=== PATIENT | female | born 1965 ===

== ENCOUNTER 2016-10-30 11:40 | Emergency (ER) | payer OTHER ==
[2016-10-30 11:43] VITALS: BMI 24.6
--- NOTE | 2016-10-30 12:06 | ED PDOC ---
Arrival/HPI - General Chief Complaint: GI Problem Time Seen by Provider: 10/30/16 11:41 Historian: Patient - History of Present Illness Narrative History of Present Illness (Text): 10/30/16 12:03 51 year old female presents to the emergency department with lower abdominal pain and multiple episodes of non-bloody diarrhea daily for the past month s/p liposuction in the [place]. Patient claims she has "22 episodes of diarrhea daily, but mostly at night" over the past month. She says symptoms only began after the liposuction. Denies nausea. No other complaints at this time. PMD: Dr. Landeros Time/Duration: < month Symptom Onset: Gradual Symptom Course: Unchanged Modifying Factors (Text): None Associated Symptoms (Text): None Past Medical History - Provider Review Nursing Documentation Reviewed: Yes - Infectious Disease Hx of Infectious Diseases: None - Reproductive Menopause: Yes - Cardiac Hx Cardiac Disorders: No - Pulmonary Hx Respiratory Disorders: No - Neurological Hx Neurological Disorder: No - HEENT Hx HEENT Disorder: No - Renal Hx Renal Disorder: No - Endocrine/Metabolic Hx Endocrine Disorders: No - Hematological/Oncological Hx Blood Disorders: No - Integumentary Hx Dermatological Disorder: No - Musculoskeletal/Rheumatological Hx Musculoskeletal Disorders: No - Gastrointestinal Hx Gastrointestinal Disorders: Yes Hx Gastritis: Yes - Genitourinary/Gynecological Hx Genitourinary Disorders: No - Psychiatric Hx Psychophysiologic Disorder: No Hx Depression: Yes Hx Substance Use: No - Anesthesia Hx Anesthesia Reactions: No Hx Malignant Hyperthermia: No Family/Social History - Physician Review Nursing Documentation Reviewed: Yes Family/Social History: Unknown Family HX Smoking Status: Never Smoked Hx Alcohol Use: No Hx Substance Use: No Allergies/Home Meds Allergies/Adverse Reactions: Allergies shrimp Allergy (Verified 09/16/16 15:12) ANAPHYLAXIS Home Medications: Home Meds Medication Instructions Recorded Confirmed LORazepam [Ativan] 1 mg PO BID PRN 09/16/16 10/30/16 Sertraline [Zoloft] 100 mg PO DAILY 09/16/16 10/30/16 Temazepam [Restoril] 30 mg PO HS PRN 09/16/16 10/30/16 Ranitidine HCl [Heartburn Relief] 150 mg PO BID 10/30/16 10/30/16 Review of Systems - Review of Systems Systems not reviewed;Unavailable: Other (patient speaks Micronesian, although brake specialist also present) Constitutional: absent: Fatigue, Fevers Eyes: absent: Vision Changes ENT: absent: Hearing Changes Respiratory: absent: SOB Cardiovascular: absent: Chest Pain Gastrointestinal: Abdominal Pain, Diarrhea. absent: Nausea Genitourinary Female: absent: Dysuria, Frequency, Hematuria Musculoskeletal: absent: Back Pain Skin: absent: Rash Neurological: absent: Dizziness Endocrine: absent: Diaphoresis Hemo/Lymphatic: absent: Easy Bleeding Psychiatric: absent: Depression Physical Exam - Physical Exam Narrative Physical Exam (Text): Head: Atraumatic. Normocephalic. Eyes: PERRL. EOMI. Conjunctivae are not pale. ENT: Mucous membranes are moist and intact. Oropharynx is clear and symmetric. Neck: Supple. Full ROM. No JVD. No lymphadenopathy. Cardiovascular: Regular rate. Regular rhythm. No murmurs, rubs, or gallops. Distal pulses are 2+ and symmetric. Pulmonary/Chest: No evidence of respiratory distress. Clear to auscultation bilaterally. No wheezing, rales or rhonchi. Abdominal: Soft and non-distended. Mild periumbilical tenderness, no focal rebound or guarding.. No rebound, guarding, or rigidity. No organomegaly. Good bowel sounds. 4 surgical scars, 1 in periumbilical region and 3 in lower abdomen. Stitches in place with some surrounding scarring. No pus or drainage. Back: No CVA tenderness. No midline tenderness. Extremities: No edema. No cyanosis. No clubbing. Full range of motion in all extremities. No calf tenderness. Skin: Skin is warm and dry. No petechiae. No purpura. Neurological: Alert, awake, and oriented to person, place, time, and situation. Normal speech. Motor and sensory intat. Psychiatric: Good eye contact. Normal interaction, affect, and behavior. 10/30/16 17:38 Vital Signs Reviewed: Yes Vital Signs Temp Pulse Resp BP Pulse Ox 10/30/16 13:37 98.2 F 72 18 119/72 100 10/30/16 11:40 98.7 F 111 H 16 136/76 99 Temperature: Afebrile Blood Pressure: Normal Pulse: Tachycardic Respiratory Rate: Normal Appearance: Positive for: Well-Appearing, Non-Toxic, Comfortable Pain Distress: None Mental Status: Positive for: Alert and Oriented X 3 Medical Decision Making ED Course and Treatment: Differential Diagnosis included but are not limited to: Gastritis, gastroenteritis, surgical scar Plan: Will give Pepcid, IV fluids and check basic labs. Prior Visits: Notes and results from previous visits were reviewed. Patient was see in the emergency department on 12/04/15 for epigastric pain and discharged home with Protonix and Zofran. Progress Notes: Patient speaks Micronesian, although brake specialist provided. She states she was recently in [place] and had liposuction performed in the [place]. She states that she has had diarrhea for several weeks with intermittent abdominal "cramping", although her current exam reveals no drainage, MINIMAL pain on initial exam that has resolved after iv fluids and iv pepcid. Labs reviewed. WBC within normal limits, patient afebrile, due to LACK OF PAIN , lack of nausea or vomiting, lack of bloody stools, CT not indicated as she has no pain or fluctuant masses. As it is not possible to communicate with patient's surgeon from [facility], stressed need for close follow-up and I directly discussed case with Dr. Landeros, who states patient is scheduled for outpatient imaging, and states patient was recently placed on Cipro for possible traveler's diarrhea. On reevaluation, patient reports complete resolution of any pain. Patient has not had any further episodes of diarrhea in the emergency department. Liver function tests found to be elevated, similar to recent labs obtained last month , which I have discussed with patient.Patient has no focal right upper quadrant pain but was told to discuss with Dr. Landeros, I have discussed these labs with her and need for follow-up. Instructed patient to follow up with PMD for surgical referral to evaluate sutures as she has insisted that these are not to be taken out. Instructions were translated and patient expresses understanding. Patient stable for discharge. Patient pain free, afebrile, tolerating po, with follow-up arranged. She has been given instructions on indications to return immediately to ER for any new or persistent or worsening of symptoms. No diarrhea or BM in ED. Advised follow-up with pmd for culture or anlaysis of stool if symptoms persistent. - Lab Interpretations Lab Results: 10/30/16 12:20 10/30/16 12:20 Lab Results 10/30/16 12:20: WBC 4.1 L, RBC 4.36, Hgb 13.2, Hct 37.3, MCV 85.6, MCH 30.3, MCHC 35.4, RDW 14.0, Plt Count 279, MPV 9.1, Gran % 49.9 L, Lymph % (Auto) 37.1 H, [place] % (Auto) 7.1 H, Eos % (Auto) 4.9, Baso % (Auto) 1.0, Gran # 2.03, Lymph # 1.5, [place] # 0.3, Eos # 0.2, Baso # 0.04, Sodium 140, Potassium 4.3, Chloride 104, Carbon Dioxide 26, Anion Gap 14, BUN 13, Creatinine 0.8, Est GFR ( Amer) > 60, Est GFR (Non-Af Amer) > 60, Random Glucose 95, Calcium 9.7, Total Bilirubin 0.9, AST 61 H, ALT 94 H, Alkaline Phosphatase 217 H, Total Protein 7.6 , Albumin 4.3, Globulin 3.4, Albumin/Globulin Ratio 1.3, Amylase 75, Lipase 154 , Urine Color Yellow, Urine Appearance Clear, Urine pH 5.5, Ur Specific [place] >= 1.030, Urine Protein Negative, Urine Glucose (UA) Negative, Urine Ketones Negative, Urine Blood Negative, Urine Nitrate Negative, Urine Bilirubin Negative , Urine Urobilinogen 0.2, Ur Leukocyte Esterase Negative, Urine HCG, Qual Negative - Medication Orders Current Medication Orders: Discontinued Medications Famotidine (Pepcid) 20 mg IVP STAT STA Stop: 10/30/16 12:04 Last Admin: 10/30/16 12:25 Dose: 20 MG IVP Administration Document 10/30/16 12:25 CA (Rec: 10/30/16 12:25 CA [id number]) Charges for Administration # of IVP Administrations 1 Sodium Chloride (Sodium Chloride 0.9%) 1,000 mls @ 100 mls/hr IV .Q10H [facility] Last Admin: 10/30/16 12:25 Dose: 100 MLS/HR eMAR Start Stop Document 10/30/16 12:25 CA (Rec: 10/30/16 12:25 CA [id number]) Intravenous Solution Start Date 10/30/16 Start Time 12:25 - Scribe Statement The provider has reviewed the documentation as recorded by the Lili Kim Provider Scribe Attestation: All medical record entries made by the Lili were at my direction and personally dictated by me. I have reviewed the chart and agree that the record accurately reflects my personal performance of the history, physical exam, medical decision making, and the department course for this patient. I have also personally directed, reviewed, and agree with the discharge instructions and disposition. Disposition/Present on Arrival - Present on Arrival Any Indicators Present on Arrival: No History of DVT/PE: No History of Uncontrolled Diabetes: No Urinary Catheter: No History of Decub. Ulcer: No History Surgical Site Infection Following: None - Disposition Have Diagnosis and Disposition been Completed?: Yes Diagnosis: Gastritis Disposition: HOME/ ROUTINE Disposition Time: 13:58 Patient Plan: Discharge Condition: GOOD Discharge Instructions (ExitCare): Gastritis (ED) Additional Instructions: Please follow-up with Dr. Landeros to have your lipsuction scars rechecked as well as need for surgeon referral to evaluate your stitches. Have your "liver enzymes" rechecked and evaluated. For any chest pain, any fever, any shortness of breath, any bloody or dark urine or stool, any persistent or worsening of symptoms, get rechecked. For any fevers or chills, get rechecked. Take your medication as directed. Prescriptions: Esomeprazole Magnesium [Nexium] 20 mg PO DAILY #7 ecc Referrals: Mague Landeros MD [Primary Care Provider] - Follow up with primary
[2016-10-30] MEDS ORDERED: Sodium Chloride 0.9% 1,000 ML IV SCH (12:15)
[2016-10-30 12:28] LABS: ADD MANUAL DIFF? NO
[2016-10-30 12:34] LABS: BASO # 0.04 K/mm3 (0.0-2.0); EOS # 0.2 (0.0-0.7); EOS % 4.9 % (1.5-5.0); GRAN # 2.03 (1.4-6.5); GRAN % 49.9 % (50.0-68.0); HEMATOCRIT 37.3 % (36.0-48.0); LYMPH # 1.5 (1.2-3.4); LYMPH % 37.1 % (22.0-35.0); MEAN CELL VOLUME 85.6 fL (80.0-105.0); MEAN CORPUSCULAR HEMOGLOBIN 30.3 pg (25.0-35.0); MEAN CORPUSCULAR HGB CONC 35.4 g/dl (31.0-37.0); MEAN PLATELET VOLUME 9.1 fl (7.0-11.0); MONO # 0.3 (0.1-0.6); MONO % 7.1 % (1.0-6.0); PH,URINE 5.5 (4.7-8.0); PLATELET COUNT 279 10^3/uL (120.0-450.0); URINE BILIRUBIN NEGATIVE (NEGATIVE); URINE BLOOD NEGATIVE (NEGATIVE); URINE GLUCOSE (UA) NEGATIVE (NEGATIVE); URINE KETONE NEGATIVE (NEGATIVE); URINE LEUKOCYTE ESTERASE NEGATIVE Leu/uL (NEGATIVE); URINE PROTEIN NEGATIVE mg/dL (<30 mg/dL); URINE UROBILINOGEN 0.2 E.U./dL (<1 E.U./dL); WHITE BLOOD COUNT 4.1 10^3/ul (4.5-11.0)
[2016-10-30 12:40] LABS: URINE APPEARANCE CLEAR (CLEAR); URINE COLOR YELLOW (YELLOW)
[2016-10-30 12:47] LABS: ALB/GLOB RATIO 1.3 (1.1-1.8); ALKALINE PHOSPHATASE 217 U/L (38-133); ALT/SGPT 94 U/L (7-56); AMYLASE 75 U/L (35-125); AST/SGOT 61 U/L (15-39); BILIRUBIN,TOTAL 0.9 mg/dL (0.2-1.3); BLOOD UREA NITROGEN 13 mg/dL (7-21); CALCIUM 9.7 mg/dL (8.4-10.5); CARBON DIOXIDE 26 mmol/L (21-33); CHLORIDE 104 mmol/L (95-110); GFR AFRICAN-AMERICAN > 60; GLUCOSE,RANDOM 95 mg/dL (70-110); LIPASE 154 U/L (23-300); POTASSIUM 4.3 mmol/L (3.6-5.0); SODIUM 140 mmol/L (132-148); TOTAL PROTEIN 7.6 g/dL (5.8-8.3)
[2016-10-30 13:38] VITALS: BP 119/72; PULSE 72; RESP 18; TEMP 98.2; O2SAT 100
== END 2016-10-30 14:05 | disposition home or self-care (01) ==
LOC: ED 11:40
DX: K29.70 Gastritis, unspecified, without bleeding (principal)
CPT/HCPCS: 80053; 81003; 82150; 83690; 84703; 85025; 96374; 99284; J7040

== ENCOUNTER 2017-04-19 13:35 | Inpatient (IN) | payer OTHER ==
[2017-04-19 13:35] VITALS: BMI 24.6
[2017-04-19] MEDS ORDERED: Sodium Chloride 0.9% 1,000 ML IV STA (14:04)
--- NOTE | 2017-04-19 14:24 | ED PDOC ---
Arrival/HPI - General Chief Complaint: Abdominal Pain Time Seen by Provider: 04/19/17 13:56 Historian: Patient - History of Present Illness Narrative History of Present Illness (Text): 04/19/17 Rima Alves is a 51 year old female, who presents to the emergency department sent in for evaluation by Dr. Landeros for epigastric pain since four days ago. Patient reports she has been nauseous for the past 3 days and has had three episodes of vomiting yesterday. Patient also notes having loose-watery stool for 2 days. Patient denies fever, dysuria, hematuria, recent travel, or sick contact. No other complaints were made. PMD: Dr. Landeros Time/Duration: < week (4 days) Symptom Onset: Sudden Symptom Course: Unchanged Associated Symptoms (Text): nausea, vomiting, diarrhea Past Medical History - Provider Review Nursing Documentation Reviewed: Yes - Infectious Disease Hx of Infectious Diseases: None - Cardiac Hx Cardiac Disorders: No - Pulmonary Hx Respiratory Disorders: No - Neurological Hx Neurological Disorder: No - HEENT Hx HEENT Disorder: No - Renal Hx Renal Disorder: No - Endocrine/Metabolic Hx Endocrine Disorders: No - Hematological/Oncological Hx Blood Disorders: No - Integumentary Hx Dermatological Disorder: No - Musculoskeletal/Rheumatological Hx Musculoskeletal Disorders: No - Gastrointestinal Hx Gastrointestinal Disorders: Yes Hx Gastritis: Yes - Genitourinary/Gynecological Hx Genitourinary Disorders: No - Psychiatric Hx Psychophysiologic Disorder: No Hx Anxiety: Yes Hx Depression: Yes Hx Substance Use: No - Surgical History Other/Comment: Tummy Tuck - Anesthesia Hx Anesthesia Reactions: No Hx Malignant Hyperthermia: No Family/Social History - Physician Review Nursing Documentation Reviewed: Yes Family/Social History: Unknown Family HX Smoking Status: Never Smoked Hx Alcohol Use: No Hx Substance Use: No Allergies/Home Meds Allergies/Adverse Reactions: Allergies No Known Allergies Allergy (Verified 04/19/17 13:47) Home Medications: Home Meds Medication Instructions Recorded Confirmed LORazepam [Ativan] 2 mg PO BID PRN 09/16/16 04/19/17 Sertraline [Zoloft] 50 mg PO DAILY 09/16/16 04/19/17 Temazepam [Restoril] 30 mg PO HS PRN 09/16/16 04/19/17 Review of Systems - Review of Systems Constitutional: absent: Fevers Respiratory: absent: SOB Gastrointestinal: Abdominal Pain, Diarrhea, Nausea, Vomiting Genitourinary Female: absent: Dysuria, Hematuria Neurological: absent: Headache Physical Exam Vital Signs Reviewed: Yes Vital Signs Temp Pulse Resp BP Pulse Ox 04/19/17 17:59 61 16 130/74 100 04/19/17 16:02 66 12 118/62 100 04/19/17 13:57 74 12 148/81 100 04/19/17 13:42 98.6 F 85 16 127/75 98 Temperature: Afebrile Blood Pressure: Normal Pulse: Regular Respiratory Rate: Normal Appearance: Positive for: Well-Appearing, Non-Toxic, Comfortable Pain Distress: None Mental Status: Positive for: Alert and Oriented X 3 - Systems Exam Head: Present: Atraumatic, Normocephalic Pupils: Present: PERRL Extroacular Muscles: Present: EOMI Conjunctiva: Present: Normal Mouth: Present: Moist Mucous Membranes Neck: Present: Normal Range of Motion Respiratory/Chest: Present: Clear to Auscultation, Good Air Exchange. No: Respiratory Distress, Accessory Muscle Use Cardiovascular: Present: Regular Rate and Rhythm, Normal S1, S2. No: Murmurs Abdomen: Present: Tenderness (upper quadrant tenderness), Normal Bowel Sounds. No: Distention, Peritoneal Signs, Guarding Upper Extremity: Present: Normal Inspection. No: Cyanosis, Edema Lower Extremity: Present: Normal Inspection. No: Edema Neurological: Present: GCS=15, CN II-XII Intact, Speech Normal Skin: Present: Warm, Dry, Normal Color. No: Rashes Psychiatric: Present: Alert, Oriented x 3, Normal Insight, Normal Concentration Medical Decision Making ED Course and Treatment: 04/19/17 Impression: 51 year old female with upper quadrant tenderness complaining of abdominal pain , nausea, vomiting, and diarrhea. Plan: -- Ultrasound -- Labs -- Urinalysis -- Pepcid, Zofran, and Sodium Chloride -- Reassess and disposition Progress Notes: 04/19/17 16:54 Case discussed with surgical garment assembly supervisor. - Lab Interpretations Lab Results: 04/19/17 14:20 04/19/17 14:20 Lab Results 04/19/17 14:20: Sodium 146, Potassium 4.0, Chloride 105, Carbon Dioxide 33, Anion Gap 12, BUN 13, Creatinine 0.8, Est GFR ( Amer) > 60, Est GFR (Non- Af Amer) > 60, Random Glucose 96, Calcium 9.1, Total Bilirubin 0.6, AST 64 H, ALT 105 H, Alkaline Phosphatase 157 H, Total Protein 6.9, Albumin 4.1, Globulin 2.8, Albumin/Globulin Ratio 1.5, Lipase 161 04/19/17 14:20: Urine Color Yellow, Urine Appearance Sl cloudy, Urine pH 6.0, Ur Specific [place] >= 1.030, Urine Protein Trace H, Urine Glucose (UA) Negative , Urine Ketones Trace H, Urine Blood Small H, Urine Nitrate Negative, Urine Bilirubin Negative, Urine Urobilinogen 1.0 H, Ur Leukocyte Esterase Trace H, Urine RBC 2 - 5, Urine WBC 0 - 2, Ur Epithelial Cells 6 - 8, Urine Bacteria Trace 04/19/17 14:20: WBC 4.3 L, RBC 4.55, Hgb 13.1, Hct 37.8, MCV 83.1, MCH 28.8, MCHC 34.7, RDW 12.8, Plt Count 152, MPV 9.5, Gran % 61.2, Lymph % (Auto) 28.4, [place] % (Auto) 7.9 H, Eos % (Auto) 2.3, Baso % (Auto) 0.2, Gran # 2.65, Lymph # 1.2, [place] # 0.3, Eos # 0.1, Baso # 0.01 I have reviewed the lab results: Yes - RAD Interpretation Radiology Orders: 04/19/17 14:04 ABDOMEN COMPLETE [US] Stat 04/19/17 17:58 Biliary scan (HIDA) w/ CCK [NM] Routine - Medication Orders Current Medication Orders: Sodium Chloride (Sodium Chloride 0.9%) 1,000 mls @ 100 mls/hr IV .Q10H SIL Last Admin: 04/19/17 18:10 Dose: 100 mls/hr Piperacillin Sod/Tazobactam Sod (Zosyn 3.375 In Ns 100ml) 100 mls @ 200 mls/hr IVPB STAT STA PRN Reason: Protocol Stop: 04/19/17 19:14 Morphine Sulfate (Morphine) 4 mg IVP Q4 PRN PRN Reason: Pain, moderate (4-7) Ondansetron HCl (Zofran Inj) 4 mg IVP Q4H PRN PRN Reason: Nausea/Vomiting Discontinued Medications Famotidine (Pepcid) 20 mg IVP STAT STA Stop: 04/19/17 14:05 Last Admin: 04/19/17 14:26 Dose: 20 mg Sodium Chloride (Sodium Chloride 0.9%) 1,000 mls @ 1,000 mls/hr IV .Q1H STA Stop: 04/19/17 15:03 Last Admin: 04/19/17 14:25 Dose: 1,000 mls/hr Ondansetron HCl (Zofran Inj) 4 mg IVP STAT STA Stop: 04/19/17 14:05 Last Admin: 04/19/17 14:26 Dose: 4 mg - Scribe Statement The provider has reviewed the documentation as recorded by the Lili Pena Provider [place] Attestation: All medical record entries made by the Kennethibe were at my direction and personally dictated by me. I have reviewed the chart and agree that the record accurately reflects my personal performance of the history, physical exam, medical decision making, and the department course for this patient. I have also personally directed, reviewed, and agree with the discharge instructions and disposition. Disposition/Present on Arrival - Present on Arrival Any Indicators Present on Arrival: No History of DVT/PE: No History of Uncontrolled Diabetes: No Urinary Catheter: No History of Decub. Ulcer: No History Surgical Site Infection Following: None - Disposition Have Diagnosis and Disposition been Completed?: Yes Diagnosis: Cholecystitis Disposition: HOSPITALIZED Disposition Time: 18:00 Condition: STABLE Referrals: PCP,NO [Primary Care Provider] - Follow up with primary Forms: Fineline (Malian)
[2017-04-19 14:35] LABS: BASO # 0.01 K/mm3 (0.0-2.0); BASO % 0.2 % (0.0-3.0); EOS # 0.1 (0.0-0.7); EOS % 2.3 % (1.5-5.0); GRAN # 2.65 (1.4-6.5); GRAN % 61.2 % (50.0-68.0); HEMATOCRIT 37.8 % (36.0-48.0); LYMPH # 1.2 (1.2-3.4); LYMPH % 28.4 % (22.0-35.0); MEAN CELL VOLUME 83.1 fl (80.0-105.0); MEAN CORPUSCULAR HEMOGLOBIN 28.8 pg (25.0-35.0); MEAN CORPUSCULAR HGB CONC 34.7 g/dl (31.0-37.0); MEAN PLATELET VOLUME 9.5 fl (7.0-11.0); MONO # 0.3 (0.1-0.6); MONO % 7.9 % (1.0-6.0); RED CELL DISTRIBUTION WIDTH 12.8 % (11.5-14.5); URINE BILIRUBIN NEGATIVE (NEGATIVE); URINE BLOOD SMALL (NEGATIVE); URINE GLUCOSE (UA) NEGATIVE (NEGATIVE); URINE KETONE TRACE mg/dL (NEGATIVE); URINE LEUKOCYTE ESTERASE TRACE Leu/uL (NEGATIVE); URINE PROTEIN TRACE mg/dL (<30 mg/dL); WHITE BLOOD COUNT 4.3 10^3/ul (4.5-11.0)
[2017-04-19 14:37] LABS: URINE APPEARANCE SL CLOUDY (CLEAR); URINE COLOR YELLOW (YELLOW)
[2017-04-19 14:38] LABS: URINE BACTERIA TRACE (NEG); URINE WBC 0 - 2 /hpf (0-6)
[2017-04-19 14:44] LABS: ALB/GLOB RATIO 1.5 (1.1-1.8); ALKALINE PHOSPHATASE 157 U/L (38-126); ALT/SGPT 105 U/L (7-56); AST/SGOT 64 U/L (14-36); BILIRUBIN,TOTAL 0.6 mg/dL (0.2-1.3); BLOOD UREA NITROGEN 13 mg/dL (7-21); CALCIUM 9.1 mg/dL (8.4-10.5); CARBON DIOXIDE 33 mmol/L (21-33); CHLORIDE 105 mmol/L (98-107); GFR AFRICAN-AMERICAN > 60; GLUCOSE,RANDOM 96 mg/dL (70-110); LIPASE 161 U/L (23-300); SODIUM 146 mmol/L (132-148); TOTAL PROTEIN 6.9 g/dL (5.8-8.3)
--- NOTE | 2017-04-19 15:52 | US ---
HISTORY: epigastric and RUQ tenderness COMPARISON: None. TECHNIQUE: Grayscale imaging was performed. FINDINGS: LIVER: Measures 16.4 cm. There is diffuse increased echogenicity of the liver parenchyma. No mass. No intrahepatic bile duct dilatation. GALLBLADDER: There are multiple gallstones and sludge in the gallbladder. No wall thickening, pericholecystic fluid or positive sonographic Lubin's sign. COMMON BILE DUCT: Measures 4.0 mm. No stones. No dilatation. PANCREAS: Unremarkable as visualized. No mass. No ductal dilatation. RIGHT KIDNEY: Measures 10.2cm. Normal echogenicity. No calculus, mass, or hydronephrosis. LEFT KIDNEY: Measures 10.1cm. Normal echogenicity. No calculus, mass, or hydronephrosis. SPLEEN: Normal in size and contour. No mass. AORTA: No aneurysmal dilatation. IVC: Unremarkable. OTHER FINDINGS: None. IMPRESSION: 1. Diffuse increased echogenicity in the liver may reflect hepatic steatosis however parenchymal infectious/ inflammatory etiologies cannot be entirely excluded. Clinical and laboratory correlation is advised. 2. Cholelithiasis and gallbladder sludge.
--- NOTE | 2017-04-19 17:49 | CP.PCM.CON ---
History of Present Illness - History of Present Illness History of Present Illness: SURGERY CONSULT FOR DR. PETERS 51F presents with epigastric pain that began 4 days ago. Patient states she has had this type of pain before multiple times but was sent home from ER for follow up. Patient states the pain is associated with nausea, vomiting, subjective fevers/chills. Pain does not radiated anywhere PMH: denies PSH: abdominoplasty Social: denies alcohol, tobacco, illicit drugs Allergies: NKDA Past Patient History - Infectious Disease Hx of Infectious Diseases: None - Past Social History Smoking Status: Never Smoked - CARDIAC Hx Cardiac Disorders: No - PULMONARY Hx Respiratory Disorders: No - NEUROLOGICAL Hx Neurological Disorder: No - HEENT Hx HEENT Problems: No - RENAL Hx Chronic Kidney Disease: No - ENDOCRINE/METABOLIC Hx Endocrine Disorders: No - HEMATOLOGICAL/ONCOLOGICAL Hx Blood Disorders: No - INTEGUMENTARY Hx Dermatological Problems: No - MUSCULOSKELETAL/RHEUMATOLOGICAL Hx Musculoskeletal Disorders: No - GASTROINTESTINAL Hx Gastrointestinal Disorders: Yes Hx Gastritis: Yes - GENITOURINARY/GYNECOLOGICAL Hx Genitourinary Disorders: No - PSYCHIATRIC Hx Psychophysiologic Disorder: No Hx Anxiety: Yes Hx Depression: Yes Hx Substance Use: No - SURGICAL HISTORY Other/Comment: Tummy Tuck - ANESTHESIA Hx Anesthesia Reactions: No Hx Malignant Hyperthermia: No Meds Allergies/Adverse Reactions: Allergies Allergy/AdvReac Type Severity Reaction Status Date / Time No Known Allergies Allergy Verified 04/19/17 13:47 Physical Exam - Constitutional Appears: Non-toxic, No Acute Distress - Head Exam Head Exam: ATRAUMATIC - Eye Exam Eye Exam: EOMI, PERRL - ENT Exam ENT Exam: Mucous Membranes Moist - Respiratory Exam Respiratory Exam: Clear to Auscultation Bilateral, NORMAL BREATHING PATTERN - Cardiovascular Exam Cardiovascular Exam: REGULAR RHYTHM, +S1, +S2 - GI/Abdominal Exam GI & Abdominal Exam: Soft, Tenderness. absent: Distended, Firm, Guarding, Rebound, Rigid Additional comments: positive murphys sign, abdominoplasty scar noted - Extremities Exam Extremities exam: Negative for: pedal edema, tenderness - Neurological Exam Neurological exam: Alert, Oriented x3 - Psychiatric Exam Psychiatric exam: Normal Affect, Normal Mood - Skin Skin Exam: Dry, Intact, Normal Color, Warm Results - Vital Signs Recent Vital Signs: Last Vital Signs Temp 98.6 F 04/19/17 13:42 Pulse 66 04/19/17 16:02 Resp 12 04/19/17 16:02 BP 118/62 04/19/17 16:02 Pulse Ox 100 04/19/17 16:02 - Labs Result Diagrams: 04/19/17 14:20 04/19/17 14:20 Labs: Laboratory Results - last 24 hr 04/19/17 04/19/17 04/19/17 14:20 14:20 14:20 WBC 4.3 L RBC 4.55 Hgb 13.1 Hct 37.8 MCV 83.1 MCH 28.8 MCHC 34.7 RDW 12.8 Plt Count 152 MPV 9.5 Gran % 61.2 Lymph % (Auto) 28.4 [place] % (Auto) 7.9 H Eos % (Auto) 2.3 Baso % (Auto) 0.2 Gran # 2.65 Lymph # 1.2 [place] # 0.3 Eos # 0.1 Baso # 0.01 Sodium 146 Potassium 4.0 Chloride 105 Carbon Dioxide 33 Anion Gap 12 BUN 13 Creatinine 0.8 Est GFR ( Amer) > 60 Est GFR (Non-Af Amer) > 60 Random Glucose 96 Calcium 9.1 Total Bilirubin 0.6 AST 64 H ALT 105 H Alkaline Phosphatase 157 H Total Protein 6.9 Albumin 4.1 Globulin 2.8 Albumin/Globulin Ratio 1.5 Lipase 161 Urine Color Yellow Urine Appearance Sl cloudy Urine pH 6.0 Ur Specific [place] >= 1.030 Urine Protein Trace H Urine Glucose (UA) Negative Urine Ketones Trace H Urine Blood Small H Urine Nitrate Negative Urine Bilirubin Negative Urine Urobilinogen 1.0 H Ur Leukocyte Esterase Trace H Urine RBC 2 - 5 Urine WBC 0 - 2 Ur Epithelial Cells 6 - 8 Urine Bacteria Trace Assessment & Plan - Assessment and Plan (Free Text) Assessment: 51F with cholelithiasis US: Sludge/cholelithiasis, no wall thickening, no pericholecystic fluid, positive sonographic ackerman's Plan: - NPO, IVF - Pain control, anti-emetic - serial abdominal exams - HIDA Further recs discuss with Dr. Hayden Barba, PGY2
[2017-04-19] MEDS ORDERED: Morphine 4 mg/ml ISec IVP PRN (17:58)
[2017-04-19] MEDS: Sodium Chloride 0.9% 1,000 ML IV SCH (18:10)
[2017-04-19] MEDS ORDERED: Piperacillin/Tazobact 3.375 gm 100 ML IVPB STA (18:45)
--- NOTE | 2017-04-19 20:20 | ED PDOC ---
Physical Exam Vital Signs Temp Pulse Resp BP Pulse Ox 04/19/17 18:56 98.3 F 66 16 104/66 100 04/19/17 17:59 61 16 130/74 100 04/19/17 16:02 66 12 118/62 100 04/19/17 13:57 74 12 148/81 100 04/19/17 13:42 98.6 F 85 16 127/75 98 Medical Decision Making ED Course and Treatment: 04/19/17 20:18 dr delacruz on blue list will admit to medical service dr lees notified, my only involvement in this case was changing admitting dr 04/19/17 20:20 - Lab Interpretations Lab Results: 04/19/17 14:20 04/19/17 14:20 Lab Results 04/19/17 14:20: Sodium 146, Potassium 4.0, Chloride 105, Carbon Dioxide 33, Anion Gap 12, BUN 13, Creatinine 0.8, Est GFR ( Amer) > 60, Est GFR (Non- Af Amer) > 60, Random Glucose 96, Calcium 9.1, Total Bilirubin 0.6, AST 64 H, ALT 105 H, Alkaline Phosphatase 157 H, Total Protein 6.9, Albumin 4.1, Globulin 2.8, Albumin/Globulin Ratio 1.5, Lipase 161 04/19/17 14:20: Urine Color Yellow, Urine Appearance Sl cloudy, Urine pH 6.0, Ur Specific [place] >= 1.030, Urine Protein Trace H, Urine Glucose (UA) Negative , Urine Ketones Trace H, Urine Blood Small H, Urine Nitrate Negative, Urine Bilirubin Negative, Urine Urobilinogen 1.0 H, Ur Leukocyte Esterase Trace H, Urine RBC 2 - 5, Urine WBC 0 - 2, Ur Epithelial Cells 6 - 8, Urine Bacteria Trace 04/19/17 14:20: WBC 4.3 L, RBC 4.55, Hgb 13.1, Hct 37.8, MCV 83.1, MCH 28.8, MCHC 34.7, RDW 12.8, Plt Count 152, MPV 9.5, Gran % 61.2, Lymph % (Auto) 28.4, [place] % (Auto) 7.9 H, Eos % (Auto) 2.3, Baso % (Auto) 0.2, Gran # 2.65, Lymph # 1.2, Bath # 0.3, Eos # 0.1, Baso # 0.01 - RAD Interpretation Radiology Orders: 04/19/17 14:04 ABDOMEN COMPLETE [US] Stat 04/19/17 17:58 Biliary scan (HIDA) w/ CCK [NM] Routine - Medication Orders Current Medication Orders: Sodium Chloride (Sodium Chloride 0.9%) 1,000 mls @ 100 mls/hr IV .Q10H [facility] Last Admin: 04/19/17 18:10 Dose: 100 mls/hr Morphine Sulfate (Morphine) 4 mg IVP Q4 PRN PRN Reason: Pain, moderate (4-7) Ondansetron HCl (Zofran Inj) 4 mg IVP Q4H PRN PRN Reason: Nausea/Vomiting Discontinued Medications Famotidine (Pepcid) 20 mg IVP STAT STA Stop: 04/19/17 14:05 Last Admin: 04/19/17 14:26 Dose: 20 mg Sodium Chloride (Sodium Chloride 0.9%) 1,000 mls @ 1,000 mls/hr IV .Q1H ST[facility] Stop: 04/19/17 15:03 Last Admin: 04/19/17 14:25 Dose: 1,000 mls/hr Piperacillin Sod/Tazobactam Sod (Zosyn 3.375 In Ns 100ml) 100 mls @ 200 mls/hr IVPB STAT STA PRN Reason: Protocol Stop: 04/19/17 19:14 Last Admin: 04/19/17 19:05 Dose: 200 mls/hr Ondansetron HCl (Zofran Inj) 4 mg IVP STAT STA Stop: 04/19/17 14:05 Last Admin: 04/19/17 14:26 Dose: 4 mg Disposition/Present on Arrival - Present on Arrival Any Indicators Present on Arrival: No History of DVT/PE: No History of Uncontrolled Diabetes: No Urinary Catheter: No History of Decub. Ulcer: No History Surgical Site Infection Following: None - Disposition Have Diagnosis and Disposition been Completed?: Yes Diagnosis: Cholecystitis Disposition: HOSPITALIZED Disposition Time: 20:19 Patient Problems: Current Active Problems Problem Status Onset Cholecystitis Acute Condition: STABLE Referrals: PCP,NO [Primary Care Provider] - Follow up with primary Forms: [id number] ([place])
--- NOTE | 2017-04-19 21:24 | CP.PCM.HP ---
<VillanuevaSeanAndriy - Last Filed: 04/20/17 20:09> History of Present Illness - History of Present Illness History of Present Illness: 51 yo female with no significant past medical history presents with epigastric pain for the past 4 days. She describes the pain as constant and sharp and states it is 10/10 intensity. She denies any radiation. She states she has been nauseas and has had three episodes of vomiting yesterday. The vomit had food particles and and denied any blood. She also states she has had diarrhea for the past 2 days which has been several times a day and watery in quality. In addition, she states she has had some slight chills but no fever. She denies any SOB, CP, hematuria, joint or muscle pain, sick contacts or recent travel. PMH: None significant PSH: abdominoplasty Allergies: NKDA Medications: Tomazepam, sertraline, Lorazepam Family Hx: none significant Social: denies alcohol, tobacco, or illicit drug use PMD: Dr. Landeros Present on Admission - Present on Admission Any Indicators Present on Admission: No Review of Systems - Constitutional Constitutional: Chills Past Patient History - Infectious Disease Hx of Infectious Diseases: None - Past Social History Smoking Status: Never Smoked - CARDIAC Hx Cardiac Disorders: No - PULMONARY Hx Respiratory Disorders: No - NEUROLOGICAL Hx Neurological Disorder: No - HEENT Hx HEENT Problems: No - RENAL Hx Chronic Kidney Disease: No - ENDOCRINE/METABOLIC Hx Endocrine Disorders: No - HEMATOLOGICAL/ONCOLOGICAL Hx Blood Disorders: No - INTEGUMENTARY Hx Dermatological Problems: No - MUSCULOSKELETAL/RHEUMATOLOGICAL Hx Musculoskeletal Disorders: No - GASTROINTESTINAL Hx Gastrointestinal Disorders: Yes Hx Gastritis: Yes - GENITOURINARY/GYNECOLOGICAL Hx Genitourinary Disorders: No - PSYCHIATRIC Hx Psychophysiologic Disorder: No Hx Anxiety: Yes Hx Depression: Yes Hx Substance Use: No - SURGICAL HISTORY Other/Comment: Tummy Tuck - ANESTHESIA Hx Anesthesia Reactions: No Hx Malignant Hyperthermia: No Meds Allergies/Adverse Reactions: Allergies Allergy/AdvReac Type Severity Reaction Status Date / Time No Known Allergies Allergy Verified 04/19/17 13:47 Physical Exam - Constitutional Appears: No Acute Distress - Head Exam Head Exam: ATRAUMATIC, NORMAL INSPECTION, NORMOCEPHALIC - Eye Exam Eye Exam: EOMI, PERRL Pupil Exam: NORMAL ACCOMODATION, PERRL - Respiratory Exam Respiratory Exam: Clear to Auscultation Bilateral, NORMAL BREATHING PATTERN - Cardiovascular Exam Cardiovascular Exam: REGULAR RHYTHM, +S1, +S2. absent: +S4, Systolic Murmur - GI/Abdominal Exam GI & Abdominal Exam: Normal Bowel Sounds, Tenderness Additional comments: tenderness in right and left upper quadrants , positive muprhys sign - Neurological Exam Neurological exam: Alert, CN II-XII Intact, Oriented x3 Results - Vital Signs Recent Vital Signs: Last Vital Signs Temp 98.3 F 04/19/17 18:56 Pulse 66 04/19/17 18:56 Resp 16 04/19/17 18:56 BP 104/66 04/19/17 18:56 Pulse Ox 100 04/19/17 18:56 - Labs Result Diagrams: 04/19/17 14:20 04/19/17 14:20 Assessment & Plan - Assessment and Plan (Free Text) Assessment: 51 yo female presents with epigastric pain for the past 4 days. She describes the pain as constant and sharp and states it is 10/10 intensity. She denies any radiation. She is being worked up for abdominal pain likely due to cholelithiasis and ruling out pancreatitis. Plan: 1. Abdominal pain likely due to cholelithiasis doubt pancreatitis - Abdominal ultrasound done and showing sludge/cholelithiasis, no wall thickening, no pericholecystic fluid, positive sonographic ackerman's - CBC and CMP ordered , electrolytes within normal limits, AST=64, SWY=453 , lipase 161, amylase 54repeat continue to monitor - Patient temp 99.1 will monitor, no leukocytosis (WBC=4.3), repeat and monitor - Vitals stable continue to monitor - patient NPO - started on Morphine for pain control - Fluids started - Zofran for nausea - Surgery consulted - GI consulted to rule out possible pancreatitis - HIDA scan ordered by Surgery 2. Depression -hold current medication -possible psychiatry consultation 3. Prophylaxis -Protonix started -Herparin started <Edd Ding - Last Filed: 04/21/17 04:18> Results - Vital Signs Recent Vital Signs: Last Vital Signs Temp 98.1 F 04/21/17 00:00 Pulse 76 04/21/17 00:00 Resp 20 04/21/17 00:00 BP 132/68 04/21/17 00:00 Pulse Ox 98 04/21/17 00:00 - Labs Result Diagrams: 04/20/17 05:30 04/20/17 05:30 Labs: Laboratory Results - last 24 hr 04/20/17 04/20/17 04/20/17 05:30 05:30 05:30 WBC 3.2 L D RBC 4.21 Hgb 11.9 L Hct 35.2 L MCV 83.6 MCH 28.3 MCHC 33.8 RDW 13.0 Plt Count 137 MPV 9.6 PT 10.7 INR 0.99 APTT 33.1 H Sodium 143 Potassium 4.1 Chloride 107 Carbon Dioxide 30 Anion Gap 10 BUN 10 Creatinine 0.7 Est GFR ( Amer) > 60 Est GFR (Non-Af Amer) > 60 Random Glucose 88 Calcium 8.6 Iron TIBC % Saturation Ferritin Total Bilirubin 0.8 AST 55 H ALT 96 H Alkaline Phosphatase 167 H Total Protein 6.2 Albumin 3.3 Globulin 2.9 Albumin/Globulin Ratio 1.1 IgG IgA IgM Hepatitis A IgM Ab Hep Bs Antigen Hep B Core IgM Ab Hepatitis C Antibody 04/20/17 04/20/17 04/20/17 05:45 07:30 07:30 WBC RBC Hgb Hct MCV MCH MCHC RDW Plt Count MPV PT INR APTT Sodium Potassium Chloride Carbon Dioxide Anion Gap BUN Creatinine Est GFR ( Amer) Est GFR (Non-Af Amer) Random Glucose Calcium Iron 82 TIBC 256 L % Saturation 32 Ferritin 180.0 Total Bilirubin AST ALT Alkaline Phosphatase Total Protein Albumin Globulin Albumin/Globulin Ratio IgG 860.0 IgA 181.9 IgM 195.9 Hepatitis A IgM Ab Hep Bs Antigen Hep B Core IgM Ab Hepatitis C Antibody 04/20/17 07:45 WBC RBC Hgb Hct MCV MCH MCHC RDW Plt Count MPV PT INR APTT Sodium Potassium Chloride Carbon Dioxide Anion Gap BUN Creatinine Est GFR ( Amer) Est GFR (Non-Af Amer) Random Glucose Calcium Iron TIBC % Saturation Ferritin Total Bilirubin AST ALT Alkaline Phosphatase Total Protein Albumin Globulin Albumin/Globulin Ratio IgG IgA IgM Hepatitis A IgM Ab Negative Hep Bs Antigen Negative Hep B Core IgM Ab Negative Hepatitis C Antibody Negative Attending/Attestation - Attestation I have personally seen and examined this patient.: Yes I have fully participated in the care of the patient.: Yes I have reviewed all pertinent clinical information: Yes Notes (Text): 04/21/17 04:18 Agree with history, physical examination, assessment and plan.
[2017-04-20 06:12] LABS: HEMATOCRIT 35.2 % (36.0-48.0); MEAN CELL VOLUME 83.6 fl (80.0-105.0); MEAN CORPUSCULAR HEMOGLOBIN 28.3 pg (25.0-35.0); MEAN CORPUSCULAR HGB CONC 33.8 g/dl (31.0-37.0); MEAN PLATELET VOLUME 9.6 fl (7.0-11.0); WHITE BLOOD COUNT 3.2 10^3/ul (4.5-11.0)
[2017-04-20 06:16] LABS: INR 0.99 (0.93-1.08); PARTIAL THROMBOPLASTIN TIME 33.1 Seconds (23.7-30.8)
[2017-04-20] MEDS: Sodium Chloride 0.9% 1,000 ML IV SCH ×2 (06:45→16:46)
[2017-04-20 07:29] LABS: ALB/GLOB RATIO 1.1 (1.1-1.8); ALKALINE PHOSPHATASE 167 U/L (38-126); ALT/SGPT 96 U/L (7-56); AST/SGOT 55 U/L (14-36); BILIRUBIN,TOTAL 0.8 mg/dL (0.2-1.3); BLOOD UREA NITROGEN 10 mg/dL (7-21); CALCIUM 8.6 mg/dL (8.4-10.5); CARBON DIOXIDE 30 mmol/L (21-33); CHLORIDE 107 mmol/L (95-110); GFR AFRICAN-AMERICAN > 60; GLUCOSE,RANDOM 88 mg/dL (70-110); POTASSIUM 4.1 mmol/L (3.6-5.0); SODIUM 143 mmol/L (132-148); TOTAL PROTEIN 6.2 g/dL (5.8-8.3)
[2017-04-20 07:45] LABS: IRON 82 ug/dL (45-180)
--- NOTE | 2017-04-20 08:00 | CP.PCM.PN ---
Subjective - Date & Time of Evaluation Date of Evaluation: 04/20/17 Time of Evaluation: 07:56 - Subjective Subjective: General Surgery Progress Note PT S&E at bedside. NAEON. Patient states she's experiencing some pain, but is tolerable. No nausea or vomiting overnight. No fever, chills. Objective - Vital Signs/Intake and Output Vital Signs (last 24 hours): Temp Pulse Resp BP Pulse Ox 98.2 F 72 20 129/74 100 04/20/17 07:41 04/20/17 07:41 04/20/17 07:41 04/20/17 07:41 04/20/17 07:41 Intake and Output: 04/20/17 04/20/17 06:59 18:59 Intake Total 240 Output Total 1 Balance 239 - Medications Medications: Current Medications Heparin Sodium (Porcine) (Heparin) 5,000 units IV Q12 [facility] Last Admin: 04/20/17 00:15 Dose: 5,000 units Sodium Chloride (Sodium Chloride 0.9%) 1,000 mls @ 100 mls/hr IV .Q10H [facility] Last Admin: 04/20/17 06:45 Dose: 100 mls/hr Morphine Sulfate (Morphine) 4 mg IVP Q4 PRN PRN Reason: Pain, moderate (4-7) Ondansetron HCl (Zofran Inj) 4 mg IVP Q4H PRN PRN Reason: Nausea/Vomiting Pantoprazole Sodium (Protonix Inj) 40 mg IVP DAILY [facility] - Labs Labs: 04/20/17 05:30 04/20/17 05:30 PT 10.7 Seconds (9.9-11.8) 04/20/17 05:30 INR 0.99 (0.93-1.08) 04/20/17 05:30 APTT 33.1 Seconds (23.7-30.8) H 04/20/17 05:30 - Constitutional Appears: Non-toxic - Head Exam Head Exam: NORMAL INSPECTION - Eye Exam Eye Exam: EOMI, Normal appearance - ENT Exam ENT Exam: Mucous Membranes Moist - Respiratory Exam Respiratory Exam: Clear to Ausculation Bilateral, NORMAL BREATHING PATTERN. absent: Accessory Muscle Use, Respiratory Distress - Cardiovascular Exam Cardiovascular Exam: REGULAR RHYTHM. absent: Bradycardia, Tachycardia - GI/Abdominal Exam GI & Abdominal Exam: Soft, Tenderness Additional comments: RUQ tenderness. no rebound. sharp pain. LUQ tenderness. no rebound. described as sharp. LLQ tenderness. no rebound - Extremities Exam Extremities Exam: Full ROM - Neurological Exam Neurological Exam: Alert, Awake, Oriented x3 - Psychiatric Exam Psychiatric exam: Normal Affect, Normal Mood - Skin Skin Exam: Dry, Intact, Normal Color, Warm Assessment and Plan - Assessment and Plan (Free Text) Assessment: 51F with cholelithiasis US: Sludge/cholelithiasis, no wall thickening, no pericholecystic fluid, positive sonographic ackerman's Plan: NPO IVF Pain control Zofran serial abdominal exams f/u HIDA d/w Dr. Hayden Simon, DO PGY1
[2017-04-20 12:08] LABS: IMMUNOGLOBULIN M 195.9 mg/dL (40.0-230.0)
[2017-04-20 12:09] LABS: IMMUNOGLOBULIN A 181.9 mg/dL (70.0-400.0)
--- NOTE | 2017-04-20 12:47 | CP.PCM.PN ---
<Radha Abel - Last Filed: 04/20/17 14:01> Subjective - Date & Time of Evaluation Date of Evaluation: 04/20/17 Time of Evaluation: 09:35 - Subjective Subjective: Radha Abel DO, PGY-1, Hospitalist Service Patient seen and examined at bedside. Legislative Assistant service was utilized in obtaining patient information. Patient reports 4 days of constant epigastric pain that radiated to the back with associated nausea only; denies vomiting or diarrhea. Patient cannot identify any precipitating factors. States the only surgery she has had was a Tummy tuck in August of this year in the [place]. Objective - Vital Signs/Intake and Output Vital Signs (last 24 hours): Temp Pulse Resp BP Pulse Ox 98.2 F 72 20 129/74 100 04/20/17 07:41 04/20/17 07:41 04/20/17 07:41 04/20/17 07:41 04/20/17 07:41 Intake and Output: 04/20/17 04/20/17 06:59 18:59 Intake Total 1040 Output Total 1 Balance 1039 - Medications Medications: Current Medications Sodium Chloride (Sodium Chloride 0.9%) 1,000 mls @ 100 mls/hr IV .Q10H [facility] Last Admin: 04/20/17 06:45 Dose: 100 mls/hr Morphine Sulfate (Morphine) 4 mg IVP Q4 PRN PRN Reason: Pain, moderate (4-7) Ondansetron HCl (Zofran Inj) 4 mg IVP Q4H PRN PRN Reason: Nausea/Vomiting Pantoprazole Sodium (Protonix Inj) 40 mg IVP DAILY [facility] Last Admin: 04/20/17 10:45 Dose: 40 mg - Labs Labs: 04/20/17 05:30 04/20/17 05:30 PT 10.7 Seconds (9.9-11.8) 04/20/17 05:30 INR 0.99 (0.93-1.08) 04/20/17 05:30 APTT 33.1 Seconds (23.7-30.8) H 04/20/17 05:30 - Constitutional Appears: Non-toxic, No Acute Distress - Head Exam Head Exam: ATRAUMATIC, NORMOCEPHALIC - Eye Exam Eye Exam: EOMI, Normal appearance - ENT Exam ENT Exam: Mucous Membranes Dry, Normal Oropharynx - Respiratory Exam Respiratory Exam: Clear to Ausculation Bilateral, NORMAL BREATHING PATTERN - Cardiovascular Exam Cardiovascular Exam: RRR, +S1, +S2 - GI/Abdominal Exam GI & Abdominal Exam: Soft. absent: Rigid, Rebound Additional comments: RUQ tenderness to palpation, equivocal Lubin's - Extremities Exam Extremities Exam: Normal Capillary Refill, Normal Inspection. absent: Pedal Edema - Back Exam Back Exam: NORMAL INSPECTION. absent: CVA tenderness (L), CVA tenderness (R) - Neurological Exam Neurological Exam: Alert, Awake, CN II-XII Intact, Oriented x3 - Psychiatric Exam Psychiatric exam: Normal Affect, Normal Mood - Skin Skin Exam: Dry, Intact, Normal Color, Warm Assessment and Plan - Assessment and Plan (Free Text) Assessment: 51 year old female presenting with four days of epigastric pain with radiation to the back and nausea. Surgery consulted. Plan: 1) Epigastric pain, nausea, decreased PO intake for 4 days - 4 days of epigastric pain with radiation to the back, multiple episodes in the past year - Abdominal US impression reads as: Diffuse increased echogenicity in the liver may reflect hepatic steatosis however parenchymal infectious/ inflammatory etiologies cannot be entirely excluded. Clinical and laboratory correlation is advised. Cholelithiasis and gallbladder sludge - HIDA scan ordered, official report pending - Surgery consulted, Dr. Blake, recommendations appreciated - Patient is NPO - IV Metronidazole - Morphine and Zofran PRN for pain and nausea, respectively - GI consulted - Hepatitis panel negative - Autoimmune liver panel ordered per GI 1b) Possible UTI, patient denies dysuria or suprapubic fullness - Patient started empirically on IV ciprofloxacin in ED 2) Depression - Continue with home Zoloft 100 mg PO daily 3) Insomnia, unspecified - Restoril in non-formulary, will consider 2 mg of Valium if patient has difficulty sleeping 4) Anxiety disorder, unspecified - Continue with PRN Ativan to prevent withdrawal symptoms 4) DVT/GI Prophylaxis: SCD and Protonix <MalouasaPatel edmondsa - Last Filed: 04/20/17 18:10> Objective - Vital Signs/Intake and Output Vital Signs (last 24 hours): Temp Pulse Resp BP Pulse Ox 98.4 F 75 20 121/76 99 04/20/17 16:22 04/20/17 16:22 04/20/17 16:22 04/20/17 16:22 04/20/17 16:22 Intake and Output: 04/20/17 04/20/17 06:59 18:59 Intake Total 1040 Output Total 1 Balance 1039 - Medications Medications: Current Medications Diazepam (Valium) 2 mg PO HS PRN; Protocol PRN Reason: Insomnia Sodium Chloride (Sodium Chloride 0.9%) 1,000 mls @ 100 mls/hr IV .Q10H [facility] Last Admin: 04/20/17 16:46 Dose: 100 mls/hr Ciprofloxacin (Cipro 400mg/200ml Dsw) 400 mg in 200 mls @ 133.3 mls/hr IVPB Q12 [facility] PRN Reason: Protocol Stop: 04/20/17 23:31 Metronidazole (Flagyl) 500 mg in 100 mls @ 100 mls/hr IVPB Q8 [facility] PRN Reason: Protocol Last Admin: 04/20/17 16:47 Dose: 100 mls/hr Ceftriaxone Sodium (Rocephin 1 Gram Ivpb) 1 gm in 100 mls @ 100 mls/hr IVPB DAILY [facility] PRN Reason: Protocol Lorazepam (Ativan) 2 mg PO BID PRN; Protocol PRN Reason: Anxiety Morphine Sulfate (Morphine) 4 mg IVP Q4 PRN PRN Reason: Pain, moderate (4-7) Ondansetron HCl (Zofran Inj) 4 mg IVP Q4H PRN PRN Reason: Nausea/Vomiting Pantoprazole Sodium (Protonix Inj) 40 mg IVP DAILY [facility] Last Admin: 04/20/17 10:45 Dose: 40 mg Sertraline HCl (Zoloft) 50 mg PO DAILY [facility] Last Admin: 04/20/17 16:43 Dose: 50 mg - Labs Labs: 04/20/17 05:30 04/20/17 05:30 PT 10.7 Seconds (9.9-11.8) 04/20/17 05:30 INR 0.99 (0.93-1.08) 04/20/17 05:30 APTT 33.1 Seconds (23.7-30.8) H 04/20/17 05:30 Attending/Attestation - Attestation I have personally seen and examined this patient.: Yes I have fully participated in the care of the patient.: Yes I have reviewed all pertinent clinical information, including history, physical exam and plan: Yes Notes (Text): 04/20/17 18:03 attending note; Patient seen and examined with resident. Patient is a 51-year-old female admitted with right upper quadrant pain. Ultrasound showed gallstones. HIDA is positive for acute cholecystitis. Nothing by mouth, IV fluids, IV anti-biotics. Patient is medically stable for cholecystectomy. Mildly elevated LFTs; CBD normal without stones. Liver showed increasing echogenicity. Hepatitis profile is negative. GI/surgery evaluation appreciated. upon discharge the patietnt will follow-up with PMD Dr. Landeros. 04/20/17 18:06
[2017-04-20] MEDS ORDERED: Iohexol 350 MG/100 ML VIAL ONE (13:34)
--- NOTE | 2017-04-20 15:42 | CP.PCM.CON ---
<Calista Paredes - Last Filed: 04/20/17 16:01> History of Present Illness - History of Present Illness History of Present Illness: Gastroenterology Fellow/PGY5 Consult Note 51 year old female with history of depression, Anxiety, and gallstones presenting with abdominal pain. Patient notes non-radiating epigastric pain for four days. Associated three episodes of food vomitus one day prior to admission and three episodes of watery diarrhea two days prior to admission. She notes a formed stool this morning. Similar symptoms of abdominal pain with ER presentations and prior diagnosis of gallstones. Denies fever, chills, sweats, hematemesis, constipation, melena, hematochezia, or unintentional weight loss. No prior EGD or colonoscopy. Family- denies colon cancer Social- denies tobacco, alcohol, iliicit drug use Surgery- abdominoplasty Review of Systems - Review of Systems Review of Systems: 12-point review of systems negative except for as above Past Patient History - Infectious Disease Hx of Infectious Diseases: None - Past Social History Smoking Status: Never Smoked - CARDIAC Hx Cardiac Disorders: No - PULMONARY Hx Respiratory Disorders: No - NEUROLOGICAL Hx Neurological Disorder: No - HEENT Hx HEENT Problems: No - RENAL Hx Chronic Kidney Disease: No - ENDOCRINE/METABOLIC Hx Endocrine Disorders: No - HEMATOLOGICAL/ONCOLOGICAL Hx Blood Disorders: No - INTEGUMENTARY Hx Dermatological Problems: No - MUSCULOSKELETAL/RHEUMATOLOGICAL Hx Musculoskeletal Disorders: No - GASTROINTESTINAL Hx Gastrointestinal Disorders: Yes Hx Gastritis: Yes - GENITOURINARY/GYNECOLOGICAL Hx Genitourinary Disorders: No - PSYCHIATRIC Hx Psychophysiologic Disorder: No Hx Anxiety: Yes Hx Depression: Yes Hx Substance Use: No - SURGICAL HISTORY Other/Comment: Tummy Tuck - ANESTHESIA Hx Anesthesia Reactions: No Hx Malignant Hyperthermia: No Meds Allergies/Adverse Reactions: Allergies Allergy/AdvReac Type Severity Reaction Status Date / Time No Known Allergies Allergy Verified 04/19/17 13:47 - Medications Medications: Current Medications Diazepam (Valium) 2 mg PO HS PRN; Protocol PRN Reason: Insomnia Sodium Chloride (Sodium Chloride 0.9%) 1,000 mls @ 100 mls/hr IV .Q10H [facility] Last Admin: 04/20/17 06:45 Dose: 100 mls/hr Ciprofloxacin (Cipro 400mg/200ml Dsw) 400 mg in 200 mls @ 133.3 mls/hr IVPB Q12 [facility] PRN Reason: Protocol Stop: 04/20/17 23:31 Metronidazole (Flagyl) 500 mg in 100 mls @ 100 mls/hr IVPB Q8 [facility] PRN Reason: Protocol Lorazepam (Ativan) 2 mg PO BID PRN; Protocol PRN Reason: Anxiety Morphine Sulfate (Morphine) 4 mg IVP Q4 PRN PRN Reason: Pain, moderate (4-7) Ondansetron HCl (Zofran Inj) 4 mg IVP Q4H PRN PRN Reason: Nausea/Vomiting Pantoprazole Sodium (Protonix Inj) 40 mg IVP DAILY [facility] Last Admin: 04/20/17 10:45 Dose: 40 mg Sertraline HCl (Zoloft) 50 mg PO DAILY [facility] Physical Exam - Constitutional Appears: Non-toxic, No Acute Distress - Head Exam Head Exam: ATRAUMATIC, NORMOCEPHALIC - Eye Exam Eye Exam: EOMI, PERRL Pupil Exam: PERRL. absent: Miosis, Mydriatic - ENT Exam ENT Exam: Mucous Membranes Moist, Normal Oropharynx - Neck Exam Neck exam: Positive for: Full Rom, Normal Inspection - Respiratory Exam Respiratory Exam: Clear to Auscultation Bilateral. absent: Rales, Rhonchi, Wheezes - Cardiovascular Exam Cardiovascular Exam: RRR, +S1, +S2. absent: Gallop, Rubs - GI/Abdominal Exam GI & Abdominal Exam: Normal Bowel Sounds, Soft, Tenderness. absent: Distended, Firm, Guarding, Organomegaly, Rebound, Rigid - Extremities Exam Extremities exam: Positive for: normal inspection. Negative for: pedal edema - Neurological Exam Neurological exam: Alert - Psychiatric Exam Psychiatric exam: Normal Affect, Normal Mood - Skin Skin Exam: Dry, Intact, Normal Color, Warm Results - Vital Signs Recent Vital Signs: Last Vital Signs Temp 98.2 F 04/20/17 07:41 Pulse 72 04/20/17 07:41 Resp 20 04/20/17 07:41 BP 129/74 04/20/17 07:41 Pulse Ox 100 04/20/17 07:41 - Labs Result Diagrams: 04/20/17 05:30 04/20/17 05:30 Labs: Laboratory Results - last 24 hr 04/20/17 04/20/17 04/20/17 05:30 05:30 05:30 WBC 3.2 L D RBC 4.21 Hgb 11.9 L Hct 35.2 L MCV 83.6 MCH 28.3 MCHC 33.8 RDW 13.0 Plt Count 137 MPV 9.6 PT 10.7 INR 0.99 APTT 33.1 H Sodium 143 Potassium 4.1 Chloride 107 Carbon Dioxide 30 Anion Gap 10 BUN 10 Creatinine 0.7 Est GFR ( Amer) > 60 Est GFR (Non-Af Amer) > 60 Random Glucose 88 Calcium 8.6 Iron TIBC % Saturation Ferritin Total Bilirubin 0.8 AST 55 H ALT 96 H Alkaline Phosphatase 167 H Total Protein 6.2 Albumin 3.3 Globulin 2.9 Albumin/Globulin Ratio 1.1 IgG IgA IgM Hepatitis A IgM Ab Hep Bs Antigen Hep B Core IgM Ab Hepatitis C Antibody 04/20/17 04/20/17 04/20/17 05:45 07:30 07:30 WBC RBC Hgb Hct MCV MCH MCHC RDW Plt Count MPV PT INR APTT Sodium Potassium Chloride Carbon Dioxide Anion Gap BUN Creatinine Est GFR ( Amer) Est GFR (Non-Af Amer) Random Glucose Calcium Iron 82 TIBC 256 L % Saturation 32 Ferritin 180.0 Total Bilirubin AST ALT Alkaline Phosphatase Total Protein Albumin Globulin Albumin/Globulin Ratio IgG 860.0 IgA 181.9 IgM 195.9 Hepatitis A IgM Ab Hep Bs Antigen Hep B Core IgM Ab Hepatitis C Antibody 04/20/17 07:45 WBC RBC Hgb Hct MCV MCH MCHC RDW Plt Count MPV PT INR APTT Sodium Potassium Chloride Carbon Dioxide Anion Gap BUN Creatinine Est GFR ( Amer) Est GFR (Non-Af Amer) Random Glucose Calcium Iron TIBC % Saturation Ferritin Total Bilirubin AST ALT Alkaline Phosphatase Total Protein Albumin Globulin Albumin/Globulin Ratio IgG IgA IgM Hepatitis A IgM Ab Negative Hep Bs Antigen Negative Hep B Core IgM Ab Negative Hepatitis C Antibody Negative Assessment & Plan - Assessment and Plan (Free Text) Assessment: 51 year old female with history of Depression, Anxiety, and gallstones presenting with abdominal pain. Active treatment of abdominal pain likely secondary to symptomatic cholelithiasis. No prior EGD or colonoscopy. Plan: >HIDA scan pending >surgery managing- follow up recommendations >no biliary dilatation >chronic transaminitis 09/2016 >negative Hepatitis panel and IgG/A/M >pending autoimmune workup >will follow clinical course <Kings Spencer - Last Filed: 04/20/17 16:45> Meds - Medications Medications: Current Medications Diazepam (Valium) 2 mg PO HS PRN; Protocol PRN Reason: Insomnia Sodium Chloride (Sodium Chloride 0.9%) 1,000 mls @ 100 mls/hr IV .Q10H [facility] Last Admin: 04/20/17 06:45 Dose: 100 mls/hr Ciprofloxacin (Cipro 400mg/200ml Dsw) 400 mg in 200 mls @ 133.3 mls/hr IVPB Q12 [facility] PRN Reason: Protocol Stop: 04/20/17 23:31 Metronidazole (Flagyl) 500 mg in 100 mls @ 100 mls/hr IVPB Q8 [facility] PRN Reason: Protocol Lorazepam (Ativan) 2 mg PO BID PRN; Protocol PRN Reason: Anxiety Morphine Sulfate (Morphine) 4 mg IVP Q4 PRN PRN Reason: Pain, moderate (4-7) Ondansetron HCl (Zofran Inj) 4 mg IVP Q4H PRN PRN Reason: Nausea/Vomiting Pantoprazole Sodium (Protonix Inj) 40 mg IVP DAILY [facility] Last Admin: 04/20/17 10:45 Dose: 40 mg Sertraline HCl (Zoloft) 50 mg PO DAILY [facility] Results - Vital Signs Recent Vital Signs: Last Vital Signs Temp 98.4 F 04/20/17 16:22 Pulse 75 04/20/17 16:22 Resp 20 04/20/17 16:22 BP 121/76 04/20/17 16:22 Pulse Ox 99 04/20/17 16:22 - Labs Result Diagrams: 04/20/17 05:30 04/20/17 05:30 Labs: Laboratory Results - last 24 hr 04/20/17 04/20/17 04/20/17 05:30 05:30 05:30 WBC 3.2 L D RBC 4.21 Hgb 11.9 L Hct 35.2 L MCV 83.6 MCH 28.3 MCHC 33.8 RDW 13.0 Plt Count 137 MPV 9.6 PT 10.7 INR 0.99 APTT 33.1 H Sodium 143 Potassium 4.1 Chloride 107 Carbon Dioxide 30 Anion Gap 10 BUN 10 Creatinine 0.7 Est GFR ( Amer) > 60 Est GFR (Non-Af Amer) > 60 Random Glucose 88 Calcium 8.6 Iron TIBC % Saturation Ferritin Total Bilirubin 0.8 AST 55 H ALT 96 H Alkaline Phosphatase 167 H Total Protein 6.2 Albumin 3.3 Globulin 2.9 Albumin/Globulin Ratio 1.1 IgG IgA IgM Hepatitis A IgM Ab Hep Bs Antigen Hep B Core IgM Ab Hepatitis C Antibody 04/20/17 04/20/17 04/20/17 05:45 07:30 07:30 WBC RBC Hgb Hct MCV MCH MCHC RDW Plt Count MPV PT INR APTT Sodium Potassium Chloride Carbon Dioxide Anion Gap BUN Creatinine Est GFR ( Amer) Est GFR (Non-Af Amer) Random Glucose Calcium Iron 82 TIBC 256 L % Saturation 32 Ferritin 180.0 Total Bilirubin AST ALT Alkaline Phosphatase Total Protein Albumin Globulin Albumin/Globulin Ratio IgG 860.0 IgA 181.9 IgM 195.9 Hepatitis A IgM Ab Hep Bs Antigen Hep B Core IgM Ab Hepatitis C Antibody 04/20/17 07:45 WBC RBC Hgb Hct MCV MCH MCHC RDW Plt Count MPV PT INR APTT Sodium Potassium Chloride Carbon Dioxide Anion Gap BUN Creatinine Est GFR ( Amer) Est GFR (Non-Af Amer) Random Glucose Calcium Iron TIBC % Saturation Ferritin Total Bilirubin AST ALT Alkaline Phosphatase Total Protein Albumin Globulin Albumin/Globulin Ratio IgG IgA IgM Hepatitis A IgM Ab Negative Hep Bs Antigen Negative Hep B Core IgM Ab Negative Hepatitis C Antibody Negative Attending/Attestation - Attestation I have personally seen and examined this patient.: Yes I have fully participated in the care of the patient.: Yes I have reviewed all pertinent clinical information: Yes Notes (Text): 04/20/17 16:43 51 year old female with h/o Depression admitted with abdominal pain found to have acute cholecystitis. 1. Acute cholecystitis 2. Cholelithiasis 3. Elevated LFTs Plan: -surgery following for cholecystectomy -recommend IV abx -supprotive care with pain control / hydration -CBD normal on US, only 4mm -viral hepatitis serologies negative -autoimmune serologies pending
--- NOTE | 2017-04-20 15:47 | NM ---
PROCEDURE: Nuclear Medicine Hepatobiliary Scan HISTORY: r/o cholecystitis COMPARISON: April 19, 2017. Abdominal ultrasound. TECHNIQUE: 7.2 mCi of technetium 99m Mebrofenin was administered intravenously. Planar images of the abdomen were obtained at 5 min intervals to 60 mins. Delayed images were also obtained. FINDINGS: LIVER: Timely and homogenous uptake. COMMON BILE DUCT: identified at 15 mins. GALLBLADDER: Not identified at 04:00 SMALL BOWEL: Identified at 15 mins. IMPRESSION: Positive Hepatobiliary Scan. The cystic duct is occluded presumptive evidence for acute cholecystitis. .
[2017-04-20] MEDS: metroNIDAZOLE IV 500 mg/100 ml 500 MG/100 ML BAG IVPB SCH ×2 (16:47→23:05)
[2017-04-20] MEDS ORDERED: Piperacillin/Tazobact 3.375 gm 100 ML IVPB SCH (18:00)
[2017-04-20] MEDS: cefTRIAXone 1 gm 1 GM/100 ML BAG IVPB SCH (18:48)
[2017-04-20] MEDS ORDERED: Ciprofloxacin 400mg/200ml D5W 400 MG/200 ML BAG IVPB SCH (22:00)
--- NOTE | 2017-04-20 22:31 | CARD ---
APPROVED REPORT EKG Measurement Heart [id number] <Conclusion> Normal sinus rhythm with sinus arrhythmia Cannot rule out Anterior infarct, age undetermined Abnormal ECG
[2017-04-21] MEDS: metroNIDAZOLE IV 500 mg/100 ml 500 MG/100 ML BAG IVPB SCH ×3 (05:49→21:33)
[2017-04-21] MEDS: Sodium Chloride 0.9% 1,000 ML IV SCH ×2 (05:49→23:49)
[2017-04-21 07:28] LABS: BASO # 0.02 K/mm3 (0.0-2.0); BASO % 0.5 % (0.0-3.0); EOS # 0.1 (0.0-0.7); EOS % 2.4 % (1.5-5.0); GRAN # 2.25 (1.4-6.5); GRAN % 54.1 % (50.0-68.0); HEMATOCRIT 37.2 % (36.0-48.0); LYMPH # 1.5 (1.2-3.4); MEAN CELL VOLUME 81.9 fl (80.0-105.0); MEAN CORPUSCULAR HEMOGLOBIN 28.6 pg (25.0-35.0); MEAN CORPUSCULAR HGB CONC 34.9 g/dl (31.0-37.0); MEAN PLATELET VOLUME 9.9 fl (7.0-11.0); MONO # 0.3 (0.1-0.6); RED CELL DISTRIBUTION WIDTH 12.7 % (11.5-14.5); WHITE BLOOD COUNT 4.2 10^3/ul (4.5-11.0)
--- NOTE | 2017-04-21 07:35 | CP.PCM.PN ---
<Calista Paredes - Last Filed: 04/21/17 10:52> Subjective - Date & Time of Evaluation Date of Evaluation: 04/21/17 Time of Evaluation: 07:31 - Subjective Subjective: Gastroenterology Fellow/PGY5 Progress Note Patient notes slight improvement in abdominal pain, pain scale 4/10. Continues to be nothing by mouth. No bowel movement yesterday. A 12-point review of systems negative except for as above. Objective - Vital Signs/Intake and Output Vital Signs (last 24 hours): Temp Pulse Resp BP Pulse Ox 98.1 F 76 20 132/68 98 04/21/17 00:00 04/21/17 00:00 04/21/17 00:00 04/21/17 00:00 04/21/17 00:00 Intake and Output: 04/21/17 04/21/17 06:59 18:59 Intake Total 2400 Balance 2400 - Medications Medications: Current Medications Diazepam (Valium) 2 mg PO HS PRN; Protocol PRN Reason: Insomnia Sodium Chloride (Sodium Chloride 0.9%) 1,000 mls @ 100 mls/hr IV .Q10H [facility] Last Admin: 04/21/17 05:49 Dose: 100 mls/hr Metronidazole (Flagyl) 500 mg in 100 mls @ 100 mls/hr IVPB Q8 [facility] PRN Reason: Protocol Last Admin: 04/21/17 05:49 Dose: 100 mls/hr Ceftriaxone Sodium (Rocephin 1 Gram Ivpb) 1 gm in 100 mls @ 100 mls/hr IVPB DAILY [facility] PRN Reason: Protocol Last Admin: 04/20/17 18:48 Dose: 100 mls/hr Lorazepam (Ativan) 2 mg PO BID PRN; Protocol PRN Reason: Anxiety Morphine Sulfate (Morphine) 4 mg IVP Q4 PRN PRN Reason: Pain, moderate (4-7) Ondansetron HCl (Zofran Inj) 4 mg IVP Q4H PRN PRN Reason: Nausea/Vomiting Pantoprazole Sodium (Protonix Inj) 40 mg IVP DAILY [facility] Last Admin: 04/20/17 10:45 Dose: 40 mg Sertraline HCl (Zoloft) 50 mg PO DAILY [facility] Last Admin: 04/20/17 16:43 Dose: 50 mg - Labs Labs: 04/20/17 05:30 04/20/17 05:30 PT 10.7 Seconds (9.9-11.8) 04/20/17 05:30 INR 0.99 (0.93-1.08) 04/20/17 05:30 APTT 33.1 Seconds (23.7-30.8) H 04/20/17 05:30 - Constitutional Appears: Non-toxic, No Acute Distress - Head Exam Head Exam: ATRAUMATIC, NORMOCEPHALIC - Eye Exam Eye Exam: EOMI, PERRL Pupil Exam: PERRL. absent: Miosis, Mydriatic - ENT Exam ENT Exam: Mucous Membranes Moist, Normal Oropharynx - Neck Exam Neck Exam: Full ROM, Normal Inspection - Respiratory Exam Respiratory Exam: Clear to Ausculation Bilateral. absent: Rales, Rhonchi, Wheezes - Cardiovascular Exam Cardiovascular Exam: RRR, +S1, +S2. absent: Gallop, Rubs - GI/Abdominal Exam GI & Abdominal Exam: Soft, Tenderness, Normal Bowel Sounds. absent: Distended, Firm, Guarding, Rigid, Organomegaly, Rebound Additional comments: B/L UQ discomfort to palpation - Extremities Exam Extremities Exam: Normal Inspection. absent: Pedal Edema - Neurological Exam Neurological Exam: Alert, Awake - Psychiatric Exam Psychiatric exam: Normal Affect, Normal Mood - Skin Skin Exam: Dry, Intact, Normal Color, Warm Assessment and Plan - Assessment and Plan (Free Text) Assessment: 51 year old female with history of Depression, Anxiety, and gallstones presenting with abdominal pain. Active treatment of abdominal pain secondary to calculous cholecystitis. No prior EGD or colonoscopy. Plan: >positive HIDA scan >surgery managing- cholecystectomy today >negative Hepatitis panel, IgG/A/M >pending autoimmune workup >will benefit from outpatient colonoscopy for CRC screening <Mike BERGMANQuail Run Behavioral Healthshanice - Last Filed: 04/21/17 20:54> Objective - Vital Signs/Intake and Output Vital Signs (last 24 hours): Temp Pulse Resp BP Pulse Ox 98.1 F 79 18 140/77 98 04/21/17 18:25 04/21/17 18:25 04/21/17 18:25 04/21/17 18:25 04/21/17 18:25 Intake and Output: 04/21/17 04/22/17 18:59 06:59 Intake Total 0 Balance 0 - Medications Medications: Current Medications Diazepam (Valium) 2 mg PO HS PRN; Protocol PRN Reason: Insomnia Hydromorphone HCl (Dilaudid) 0.5 mg IVP Q15M PRN PRN Reason: Pain, moderate (4-7) Stop: 04/22/17 17:46 Hydromorphone HCl (Dilaudid) 0.5 mg IVP Q4H PRN PRN Reason: Pain, severe (8-10) Last Admin: 04/21/17 19:06 Dose: 0.5 mg Sodium Chloride (Sodium Chloride 0.9%) 1,000 mls @ 100 mls/hr IV .Q10H [facility] Last Admin: 04/21/17 05:49 Dose: 100 mls/hr Metronidazole (Flagyl) 500 mg in 100 mls @ 100 mls/hr IVPB Q8 [facility] PRN Reason: Protocol Last Admin: 04/21/17 15:50 Dose: 100 mls/hr Ceftriaxone Sodium (Rocephin 1 Gram Ivpb) 1 gm in 100 mls @ 100 mls/hr IVPB DAILY [facility] PRN Reason: Protocol Last Admin: 04/21/17 09:32 Dose: 100 mls/hr Lorazepam (Ativan) 2 mg PO BID PRN; Protocol PRN Reason: Anxiety Morphine Sulfate (Morphine) 4 mg IVP Q4 PRN PRN Reason: Pain, moderate (4-7) Ondansetron HCl (Zofran Inj) 4 mg IVP Q4H PRN PRN Reason: Nausea/Vomiting Oxycodone/Acetaminophen (Percocet 5/325 Mg Tab) 1 tab PO Q4H PRN PRN Reason: Pain, moderate (4-7) Stop: 04/24/17 17:48 Pantoprazole Sodium (Protonix Inj) 40 mg IVP DAILY [facility] Last Admin: 04/21/17 09:33 Dose: 40 mg Sertraline HCl (Zoloft) 50 mg PO DAILY [facility] Last Admin: 04/21/17 09:33 Dose: 50 mg - Labs Labs: 04/21/17 06:50 04/21/17 06:50 PT 10.7 Seconds (9.9-11.8) 04/20/17 05:30 INR 0.99 (0.93-1.08) 04/20/17 05:30 APTT 33.1 Seconds (23.7-30.8) H 04/20/17 05:30 Attending/Attestation - Attestation I have personally seen and examined this patient.: Yes I have fully participated in the care of the patient.: Yes I have reviewed all pertinent clinical information, including history, physical exam and plan: Yes Notes (Text): 04/21/17 20:52 patient seen at bedside with GI fellow and resident. This is a 51 year old female with h/o Depression admitted with abdominal pain found to have acute cholecystitis without choledocholithaisis. Surgery following for possible cholecystectomy. Continue IV antibiotics. Will sign off. She was given information to follow as outpatient
--- NOTE | 2017-04-21 07:42 | RAD ---
HISTORY: pre op COMPARISON: Chest radiographs 12/08/2016. FINDINGS: LUNGS: No active pulmonary disease. PLEURA: No significant pleural effusion identified, no pneumothorax apparent. CARDIOVASCULAR: Normal. OSSEOUS STRUCTURES: No significant abnormalities. VISUALIZED UPPER ABDOMEN: Normal. OTHER FINDINGS: None. IMPRESSION: No acute interval cardiopulmonary disease .
[2017-04-21 07:48] LABS: ALB/GLOB RATIO 1.3 (1.1-1.8); ALKALINE PHOSPHATASE 190 U/L (38-126); ALT/SGPT 94 U/L (7-56); AST/SGOT 50 U/L (14-36); BILIRUBIN,TOTAL 0.8 mg/dL (0.2-1.3); BLOOD UREA NITROGEN 9 mg/dL (7-21); CALCIUM 8.7 mg/dL (8.4-10.5); CARBON DIOXIDE 27 mmol/L (21-33); CHLORIDE 104 mmol/L (98-107); GFR AFRICAN-AMERICAN > 60; GLUCOSE,RANDOM 75 mg/dL (70-110); POTASSIUM 3.7 mmol/L (3.6-5.0); SODIUM 143 mmol/L (132-148); TOTAL PROTEIN 6.8 g/dL (5.8-8.3)
[2017-04-21] MEDS: cefTRIAXone 1 gm 1 GM/100 ML BAG IVPB SCH (09:32)
--- NOTE | 2017-04-21 10:46 | CP.PCM.PN ---
<Radha Abel - Last Filed: 04/21/17 12:53> Subjective - Date & Time of Evaluation Date of Evaluation: 04/21/17 Time of Evaluation: 10:35 - Subjective Subjective: Radha Abel DO, PGY-1, Hospitalist Service Patient seen and examined at bedside. Patient reports no complaints. Nurse reports no events overnight. Objective - Vital Signs/Intake and Output Vital Signs (last 24 hours): Temp Pulse Resp BP Pulse Ox 98.2 F 62 20 127/90 100 04/21/17 08:21 04/21/17 08:21 04/21/17 08:21 04/21/17 08:21 04/21/17 08:21 Intake and Output: 04/21/17 04/21/17 06:59 18:59 Intake Total 2400 Balance 2400 - Medications Medications: Current Medications Diazepam (Valium) 2 mg PO HS PRN; Protocol PRN Reason: Insomnia Sodium Chloride (Sodium Chloride 0.9%) 1,000 mls @ 100 mls/hr IV .Q10H [facility] Last Admin: 04/21/17 05:49 Dose: 100 mls/hr Metronidazole (Flagyl) 500 mg in 100 mls @ 100 mls/hr IVPB Q8 [facility] PRN Reason: Protocol Last Admin: 04/21/17 05:49 Dose: 100 mls/hr Ceftriaxone Sodium (Rocephin 1 Gram Ivpb) 1 gm in 100 mls @ 100 mls/hr IVPB DAILY [facility] PRN Reason: Protocol Last Admin: 04/21/17 09:32 Dose: 100 mls/hr Lorazepam (Ativan) 2 mg PO BID PRN; Protocol PRN Reason: Anxiety Morphine Sulfate (Morphine) 4 mg IVP Q4 PRN PRN Reason: Pain, moderate (4-7) Ondansetron HCl (Zofran Inj) 4 mg IVP Q4H PRN PRN Reason: Nausea/Vomiting Pantoprazole Sodium (Protonix Inj) 40 mg IVP DAILY [facility] Last Admin: 04/21/17 09:33 Dose: 40 mg Sertraline HCl (Zoloft) 50 mg PO DAILY [facility] Last Admin: 04/21/17 09:33 Dose: 50 mg - Labs Labs: 04/21/17 06:50 04/21/17 06:50 PT 10.7 Seconds (9.9-11.8) 04/20/17 05:30 INR 0.99 (0.93-1.08) 04/20/17 05:30 APTT 33.1 Seconds (23.7-30.8) H 04/20/17 05:30 - Constitutional Appears: Well, No Acute Distress - Head Exam Head Exam: ATRAUMATIC, NORMOCEPHALIC - Eye Exam Eye Exam: EOMI, Normal appearance, PERRL - ENT Exam ENT Exam: Mucous Membranes Dry, Normal Oropharynx - Neck Exam Neck Exam: Normal Inspection - Respiratory Exam Respiratory Exam: Clear to Ausculation Bilateral, NORMAL BREATHING PATTERN - Cardiovascular Exam Cardiovascular Exam: RRR, +S1, +S2 - GI/Abdominal Exam GI & Abdominal Exam: Soft, Normal Bowel Sounds. absent: Rebound Additional comments: epigastric and RUQ tenderness to palpation - Extremities Exam Extremities Exam: Normal Capillary Refill, Normal Inspection. absent: Pedal Edema - Back Exam Back Exam: NORMAL INSPECTION. absent: CVA tenderness (L), CVA tenderness (R) - Neurological Exam Neurological Exam: Alert, CN II-XII Intact, Oriented x3 Neuro motor strength exam: Left Upper Extremity: 5, Right Upper Extremity: 5, Left Lower Extremity: 5, Right Lower Extremity: 5 - Psychiatric Exam Psychiatric exam: Normal Affect, Normal Mood - Skin Skin Exam: Dry, Intact, Normal Color, Warm Assessment and Plan - Assessment and Plan (Free Text) Plan: 1) Acute cholecystis - HIDA scan shows cystic duct occlusion - Patient NPO for surgery today - IV Metronidazole and IV Ceftriaxone - Morphine and Zofran PRN for pain and nausea, respectively - Hepatitis panel negative, - Autoimmune liver panel pending 2) Chronic Transaminitis since 09/2016 - Autoimmune hepatitis panel pending - Viral Hepatitis panel negative - GI consulted 3) Depression - Continue with home Zoloft 100 mg PO daily 4) Insomnia, unspecified - Patient takes Restoril at home; this is non-formulary, add PRN 2 mg of Valium if patient has insomnia 5) Anxiety disorder, unspecified - Continue with PRN Ativan to prevent withdrawal symptoms 6) DVT/GI Prophylaxis: SCD and Protonix 7) Age appropirate screening - Recommend patient to have an outpatient screening colonoscopy <Dawson Pitts - Last Filed: 04/21/17 16:37> Objective - Vital Signs/Intake and Output Vital Signs (last 24 hours): Temp Pulse Resp BP Pulse Ox 98.2 F 80 20 147/77 99 04/21/17 13:35 04/21/17 13:35 04/21/17 13:35 04/21/17 13:35 04/21/17 13:35 Intake and Output: 04/21/17 04/21/17 06:59 18:59 Intake Total 2400 0 Balance 2400 0 - Medications Medications: Current Medications Diazepam (Valium) 2 mg PO HS PRN; Protocol PRN Reason: Insomnia Sodium Chloride (Sodium Chloride 0.9%) 1,000 mls @ 100 mls/hr IV .Q10H [facility] Last Admin: 04/21/17 05:49 Dose: 100 mls/hr Metronidazole (Flagyl) 500 mg in 100 mls @ 100 mls/hr IVPB Q8 [facility] PRN Reason: Protocol Last Admin: 04/21/17 15:50 Dose: 100 mls/hr Ceftriaxone Sodium (Rocephin 1 Gram Ivpb) 1 gm in 100 mls @ 100 mls/hr IVPB DAILY [facility] PRN Reason: Protocol Last Admin: 04/21/17 09:32 Dose: 100 mls/hr Lorazepam (Ativan) 2 mg PO BID PRN; Protocol PRN Reason: Anxiety Morphine Sulfate (Morphine) 4 mg IVP Q4 PRN PRN Reason: Pain, moderate (4-7) Ondansetron HCl (Zofran Inj) 4 mg IVP Q4H PRN PRN Reason: Nausea/Vomiting Pantoprazole Sodium (Protonix Inj) 40 mg IVP DAILY [facility] Last Admin: 04/21/17 09:33 Dose: 40 mg Sertraline HCl (Zoloft) 50 mg PO DAILY [facility] Last Admin: 04/21/17 09:33 Dose: 50 mg - Labs Labs: 04/21/17 06:50 04/21/17 06:50 PT 10.7 Seconds (9.9-11.8) 04/20/17 05:30 INR 0.99 (0.93-1.08) 04/20/17 05:30 APTT 33.1 Seconds (23.7-30.8) H 04/20/17 05:30 Attending/Attestation - Attestation I have personally seen and examined this patient.: Yes I have fully participated in the care of the patient.: Yes I have reviewed all pertinent clinical information, including history, physical exam and plan: Yes Notes (Text): 04/21/17 16:36 attending note; Patient seen and examined with resident. Patient is a 51-year-old female admitted with right upper quadrant pain. Ultrasound showed gallstones. HIDA is positive for acute cholecystitis. Nothing by mouth, IV fluids, IV anti-biotics. plan for lap cholecystectomy today. Mildly elevated LFTs; Improving. CBD normal without stones. Liver showed increasing echogenicity. Hepatitis profile is negative. GI/surgery evaluation appreciated. upon discharge the patient will follow-up with PMD Dr. Landeros.
[2017-04-21] MEDS ORDERED: Midazolam 2 MG/2 ML VIAL ONE (13:43)
[2017-04-21] MEDS ORDERED: Succinylcholine 200 mg/10 ml Inj IV ONE (13:43)
[2017-04-21] MEDS ORDERED: Rocuronium 10 mg/ml (5 ml) ONE (13:43)
[2017-04-21] MEDS ORDERED: Lidocaine 2% Inj (20ml) ONE (13:43)
[2017-04-21] MEDS ORDERED: Propofol 10 mg/ml Inj (20 ML) ONE (13:43)
[2017-04-21] MEDS ORDERED: Bupivacaine 0.5% Inj(30mL) ONE (13:54)
[2017-04-21] MEDS ORDERED: Iohexol 240 (50 ml) ONE (13:54)
--- NOTE | 2017-04-21 14:32 | CP.PCM.PN ---
<Hannah Simon - Last Filed: 04/21/17 14:30> Subjective - Date & Time of Evaluation Date of Evaluation: 04/21/17 Time of Evaluation: 14:30 - Subjective Subjective: General Surgery Note for Dr. Blake Patient seen and examined at bedside. Complains of mild pain, but is tolerable. Denies fever/chills, nausea/vomiting. Positive HIDA scan, scheduled for cholecystectomy today. Objective - Vital Signs/Intake and Output Vital Signs (last 24 hours): Temp Pulse Resp BP Pulse Ox 98.2 F 80 20 147/77 99 04/21/17 13:35 04/21/17 13:35 04/21/17 13:35 04/21/17 13:35 04/21/17 13:35 Intake and Output: 04/21/17 04/21/17 06:59 18:59 Intake Total 2400 0 Balance 2400 0 - Medications Medications: Current Medications Diazepam (Valium) 2 mg PO HS PRN; Protocol PRN Reason: Insomnia Sodium Chloride (Sodium Chloride 0.9%) 1,000 mls @ 100 mls/hr IV .Q10H [facility] Last Admin: 04/21/17 05:49 Dose: 100 mls/hr Metronidazole (Flagyl) 500 mg in 100 mls @ 100 mls/hr IVPB Q8 SIL PRN Reason: Protocol Last Admin: 04/21/17 05:49 Dose: 100 mls/hr Ceftriaxone Sodium (Rocephin 1 Gram Ivpb) 1 gm in 100 mls @ 100 mls/hr IVPB DAILY SIL PRN Reason: Protocol Last Admin: 04/21/17 09:32 Dose: 100 mls/hr Lorazepam (Ativan) 2 mg PO BID PRN; Protocol PRN Reason: Anxiety Morphine Sulfate (Morphine) 4 mg IVP Q4 PRN PRN Reason: Pain, moderate (4-7) Ondansetron HCl (Zofran Inj) 4 mg IVP Q4H PRN PRN Reason: Nausea/Vomiting Pantoprazole Sodium (Protonix Inj) 40 mg IVP DAILY [facility] Last Admin: 04/21/17 09:33 Dose: 40 mg Sertraline HCl (Zoloft) 50 mg PO DAILY [facility] Last Admin: 04/21/17 09:33 Dose: 50 mg - Labs Labs: 04/21/17 06:50 04/21/17 06:50 PT 10.7 Seconds (9.9-11.8) 04/20/17 05:30 INR 0.99 (0.93-1.08) 04/20/17 05:30 APTT 33.1 Seconds (23.7-30.8) H 04/20/17 05:30 - Constitutional Appears: Non-toxic - Head Exam Head Exam: NORMAL INSPECTION - Eye Exam Eye Exam: EOMI, Normal appearance - ENT Exam ENT Exam: Mucous Membranes Moist - Neck Exam Neck Exam: Full ROM - Respiratory Exam Respiratory Exam: Clear to Ausculation Bilateral, NORMAL BREATHING PATTERN. absent: Accessory Muscle Use, Respiratory Distress - GI/Abdominal Exam GI & Abdominal Exam: Soft, Tenderness Additional comments: RUQ tenderness, mild - Extremities Exam Extremities Exam: Full ROM, Normal Inspection. absent: Pedal Edema - Neurological Exam Neurological Exam: Alert, Awake, Oriented x3 - Skin Skin Exam: Dry, Intact, Normal Color, Warm Assessment and Plan - Assessment and Plan (Free Text) Assessment: 51F presents with cholecystectomy Plan: cholecystectomy today NPO IVF Rocephin, Flagyl pain control c/w medical management Hannah Simon DO PGY1 <Dawson Pitts - Last Filed: 04/21/17 16:30> Objective - Vital Signs/Intake and Output Vital Signs (last 24 hours): Temp Pulse Resp BP Pulse Ox 98.2 F 80 20 147/77 99 04/21/17 13:35 04/21/17 13:35 04/21/17 13:35 04/21/17 13:35 04/21/17 13:35 Intake and Output: 04/21/17 04/21/17 06:59 18:59 Intake Total 2400 0 Balance 2400 0 - Medications Medications: Current Medications Diazepam (Valium) 2 mg PO HS PRN; Protocol PRN Reason: Insomnia Sodium Chloride (Sodium Chloride 0.9%) 1,000 mls @ 100 mls/hr IV .Q10H [facility] Last Admin: 04/21/17 05:49 Dose: 100 mls/hr Metronidazole (Flagyl) 500 mg in 100 mls @ 100 mls/hr IVPB Q8 SIL PRN Reason: Protocol Last Admin: 04/21/17 15:50 Dose: 100 mls/hr Ceftriaxone Sodium (Rocephin 1 Gram Ivpb) 1 gm in 100 mls @ 100 mls/hr IVPB DAILY SIL PRN Reason: Protocol Last Admin: 04/21/17 09:32 Dose: 100 mls/hr Lorazepam (Ativan) 2 mg PO BID PRN; Protocol PRN Reason: Anxiety Morphine Sulfate (Morphine) 4 mg IVP Q4 PRN PRN Reason: Pain, moderate (4-7) Ondansetron HCl (Zofran Inj) 4 mg IVP Q4H PRN PRN Reason: Nausea/Vomiting Pantoprazole Sodium (Protonix Inj) 40 mg IVP DAILY [facility] Last Admin: 04/21/17 09:33 Dose: 40 mg Sertraline HCl (Zoloft) 50 mg PO DAILY [facility] Last Admin: 04/21/17 09:33 Dose: 50 mg - Labs Labs: 04/21/17 06:50 04/21/17 06:50 PT 10.7 Seconds (9.9-11.8) 04/20/17 05:30 INR 0.99 (0.93-1.08) 04/20/17 05:30 APTT 33.1 Seconds (23.7-30.8) H 04/20/17 05:30 Attending/Attestation - Attestation I have personally seen and examined this patient.: Yes I have fully participated in the care of the patient.: Yes I have reviewed all pertinent clinical information, including history, physical exam and plan: Yes
[2017-04-21] MEDS ORDERED: MetroNIDAZOLE 500 mg/100 ml IVPB ONE (15:50)
[2017-04-21] MEDS ORDERED: Neostigmine Methylsulfate 3mg/3ml Syringe IV ONE (17:10)
[2017-04-21] MEDS ORDERED: Glycopyrrolate 0.2 mg/ml (2ml vial) ONE (17:11)
[2017-04-21] MEDS ORDERED: HYDROmorphone 0.5 mg/0.5 ml ISec IVP PRN (17:45)
--- NOTE | 2017-04-21 17:52 | PCM.SURG1 ---
Surgeon's Initial Post Op Note - Surgeon's Notes Surgeon: Dr. Blake Refining Still Operator: Dr. Jenkins PGY-4, Dr. Gallarod PGY-2 Type of Anesthesia: General Endo Pre-Operative Diagnosis: acute cholecystitis. cholelithiasis Operative Findings: same Post-Operative Diagnosis: see operative report Operation Performed: laparoscopic cholecystectomy Specimen/Specimens Removed: gallbladder Estimated Blood Loss: EBL {In ML}: 30 Blood Products Given: N/A Drains Used: No Drains Post-Op Condition: Good Date of Surgery/Procedure: 04/21/17 Time of Surgery/Procedure: 17:52
[2017-04-21] MEDS ORDERED: HYDROmorphone 0.5 mg/0.5 ml ISec ONE (18:13)
[2017-04-21] MEDS: HYDROmorphone 0.5 mg/0.5 ml ISec IVP PRN ×2 (19:06→23:50)
[2017-04-22 01:58] VITALS: RESP 20
[2017-04-22] MEDS: HYDROmorphone 0.5 mg/0.5 ml ISec IVP PRN (04:10)
[2017-04-22] MEDS: metroNIDAZOLE IV 500 mg/100 ml 500 MG/100 ML BAG IVPB SCH ×2 (06:07→13:49)
[2017-04-22 07:20] LABS: BASO # 0.01 K/mm3 (0.0-2.0); BASO % 0.1 % (0.0-3.0); GRAN # 6.28 (1.4-6.5); GRAN % 84.7 % (50.0-68.0); LYMPH # 0.6 (1.2-3.4); LYMPH % 7.8 % (22.0-35.0); MEAN CELL VOLUME 81.3 fl (80.0-105.0); MEAN CORPUSCULAR HEMOGLOBIN 28.7 pg (25.0-35.0); MEAN CORPUSCULAR HGB CONC 35.3 g/dl (31.0-37.0); MEAN PLATELET VOLUME 9.6 fl (7.0-11.0); MONO # 0.6 (0.1-0.6); MONO % 7.4 % (1.0-6.0); RED CELL DISTRIBUTION WIDTH 12.6 % (11.5-14.5); WHITE BLOOD COUNT 7.4 10^3/ul (4.5-11.0)
[2017-04-22 07:32] LABS: ALB/GLOB RATIO 1.3 (1.1-1.8); ALKALINE PHOSPHATASE 157 U/L (38-126); ALT/SGPT 91 U/L (7-56); AST/SGOT 53 U/L (14-36); BILIRUBIN,TOTAL 0.7 mg/dL (0.2-1.3); BLOOD UREA NITROGEN 12 mg/dL (7-21); CALCIUM 8.3 mg/dL (8.4-10.5); CARBON DIOXIDE 21 mmol/L (21-33); CHLORIDE 104 mmol/L (98-107); GFR AFRICAN-AMERICAN > 60; GLUCOSE,RANDOM 124 mg/dL (70-110); POTASSIUM 4.9 mmol/L (3.6-5.0); SODIUM 139 mmol/L (132-148)
--- NOTE | 2017-04-22 09:36 | CP.PCM.PN ---
Subjective - Date & Time of Evaluation Date of Evaluation: 04/22/17 Time of Evaluation: 09:32 - Subjective Subjective: General Surgery Note for Dr. Blake PT S&E, seen in chair. Patient states she vomited a little at 4 am and 7 am. Patient states she's not nauseas, no dizziness, fever or chills. Patient is tolerated regular diet, but does not like the food. Patient denies flatus, admits to one normal BM. Objective - Vital Signs/Intake and Output Vital Signs (last 24 hours): Temp Pulse Resp BP Pulse Ox 98.1 F 82 20 104/62 100 04/22/17 07:30 04/22/17 07:30 04/22/17 07:30 04/22/17 07:30 04/22/17 07:30 Intake and Output: 04/22/17 04/22/17 06:59 18:59 Intake Total 1740 Balance 1740 - Medications Medications: Current Medications Diazepam (Valium) 2 mg PO HS PRN; Protocol PRN Reason: Insomnia Sodium Chloride (Sodium Chloride 0.9%) 1,000 mls @ 100 mls/hr IV .Q10H [facility] Last Admin: 04/21/17 23:49 Dose: 100 mls/hr Metronidazole (Flagyl) 500 mg in 100 mls @ 100 mls/hr IVPB Q8 SIL PRN Reason: Protocol Last Admin: 04/22/17 06:07 Dose: 100 mls/hr Ceftriaxone Sodium (Rocephin 1 Gram Ivpb) 1 gm in 100 mls @ 100 mls/hr IVPB DAILY SIL PRN Reason: Protocol Last Admin: 04/21/17 09:32 Dose: 100 mls/hr Lorazepam (Ativan) 2 mg PO BID PRN; Protocol PRN Reason: Anxiety Ondansetron HCl (Zofran Inj) 4 mg IVP Q4H PRN PRN Reason: Nausea/Vomiting Last Admin: 04/22/17 04:21 Dose: 4 mg Oxycodone/Acetaminophen (Percocet 5/325 Mg Tab) 1 tab PO Q4H PRN PRN Reason: Pain, moderate (4-7) Stop: 04/24/17 17:48 Pantoprazole Sodium (Protonix Inj) 40 mg IVP DAILY [facility] Last Admin: 04/21/17 09:33 Dose: 40 mg Sertraline HCl (Zoloft) 50 mg PO DAILY [facility] Last Admin: 04/21/17 09:33 Dose: 50 mg - Labs Labs: 04/22/17 07:15 04/22/17 07:15 PT 10.7 Seconds (9.9-11.8) 04/20/17 05:30 INR 0.99 (0.93-1.08) 04/20/17 05:30 APTT 33.1 Seconds (23.7-30.8) H 04/20/17 05:30 - Constitutional Appears: Non-toxic - Head Exam Head Exam: NORMAL INSPECTION - Eye Exam Eye Exam: EOMI - ENT Exam ENT Exam: Mucous Membranes Moist - Neck Exam Neck Exam: Full ROM - Respiratory Exam Respiratory Exam: NORMAL BREATHING PATTERN. absent: Accessory Muscle Use, Respiratory Distress - Cardiovascular Exam Cardiovascular Exam: REGULAR RHYTHM. absent: Bradycardia, Tachycardia - GI/Abdominal Exam GI & Abdominal Exam: Soft, Normal Bowel Sounds. absent: Tenderness Additional comments: incision sites, dressings in place, c/d/i - Extremities Exam Extremities Exam: Full ROM. absent: Pedal Edema - Neurological Exam Neurological Exam: Alert, Awake, Oriented x3 - Psychiatric Exam Psychiatric exam: Normal Affect, Normal Mood - Skin Skin Exam: Dry, Intact, Normal Color, Warm Assessment and Plan - Assessment and Plan (Free Text) Assessment: 51F cholecystitis s/p cholecystectomy POD#1 Plan: monitor vitals reg diet, tolerating c/w abx c/w pain control c/w medical management Hannah Simon, DO PGY1
[2017-04-22] MEDS: cefTRIAXone 1 gm 1 GM/100 ML BAG IVPB SCH (09:55)
[2017-04-22] MEDS: Oxycodone/Acetaminophen 5/325 mg Tab PO PRN ×2 (09:59→16:49)
--- NOTE | 2017-04-22 13:44 | CP.PCM.DIS ---
<Radha Abel - Last Filed: 04/22/17 16:23> Provider - Provider Date of Admission: 04/19/17 20:19 Attending physician: Dawson Pitts MD Primary care physician: NO PRIMARY CARE PROVIDER Consults: Dr. Tj Blake Time Spent in preparation of Discharge (in minutes): 55 Hospital Course - Lab Results Lab Results: Most Recent Lab Values WBC 7.4 10^3/ul (4.5-11.0) D 04/22/17 07:15 RBC 4.18 10^6/uL (3.5-6.1) 04/22/17 07:15 Hgb 12.0 g/dL (12.0-16.0) 04/22/17 07:15 Hct 34.0 % (36.0-48.0) L 04/22/17 07:15 MCV 81.3 fl (80.0-105.0) 04/22/17 07:15 MCH 28.7 pg (25.0-35.0) 04/22/17 07:15 MCHC 35.3 g/dl (31.0-37.0) 04/22/17 07:15 RDW 12.6 % (11.5-14.5) 04/22/17 07:15 Plt Count 176 10^3/uL (120.0-450.0) 04/22/17 07:15 MPV 9.6 fl (7.0-11.0) 04/22/17 07:15 Gran % 84.7 % (50.0-68.0) H 04/22/17 07:15 Lymph % (Auto) 7.8 % (22.0-35.0) L 04/22/17 07:15 Dale % (Auto) 7.4 % (1.0-6.0) H 04/22/17 07:15 Eos % (Auto) 0.0 % (1.5-5.0) L 04/22/17 07:15 Baso % (Auto) 0.1 % (0.0-3.0) 04/22/17 07:15 Gran # 6.28 (1.4-6.5) 04/22/17 07:15 Lymph # 0.6 (1.2-3.4) L 04/22/17 07:15 Dale # 0.6 (0.1-0.6) 04/22/17 07:15 Eos # 0.0 (0.0-0.7) 04/22/17 07:15 Baso # 0.01 K/mm3 (0.0-2.0) 04/22/17 07:15 PT 10.7 Seconds (9.9-11.8) 04/20/17 05:30 INR 0.99 (0.93-1.08) 04/20/17 05:30 APTT 33.1 Seconds (23.7-30.8) H 04/20/17 05:30 Sodium 139 mmol/L (132-148) 04/22/17 07:15 Potassium 4.9 mmol/L (3.6-5.0) 04/22/17 07:15 Chloride 104 mmol/L (98-107) 04/22/17 07:15 Carbon Dioxide 21 mmol/L (21-33) 04/22/17 07:15 Anion Gap 19 (10-20) 04/22/17 07:15 BUN 12 mg/dL (7-21) 04/22/17 07:15 Creatinine 0.7 mg/dL (0.5-1.4) 04/22/17 07:15 Est GFR ( Amer) > 60 04/22/17 07:15 Est GFR (Non-Af Amer) > 60 04/22/17 07:15 Random Glucose 124 mg/dL (70-110) H 04/22/17 07:15 Calcium 8.3 mg/dL (8.4-10.5) L 04/22/17 07:15 Iron 82 ug/dL (45-180) 04/20/17 05:45 TIBC 256 ug/dL (265-497) L 04/20/17 05:45 % Saturation 32 % (20-55) 04/20/17 05:45 Ferritin 180.0 ng/mL 04/20/17 07:30 Total Bilirubin 0.7 mg/dL (0.2-1.3) 04/22/17 07:15 AST 53 U/L (14-36) H 04/22/17 07:15 ALT 91 U/L (7-56) H 04/22/17 07:15 Alkaline Phosphatase 157 U/L (38-126) H 04/22/17 07:15 Total Protein 6.0 g/dL (5.8-8.3) 04/22/17 07:15 Albumin 3.5 g/dL (3.0-4.8) 04/22/17 07:15 Globulin 2.6 gm/dL 04/22/17 07:15 Albumin/Globulin Ratio 1.3 (1.1-1.8) 04/22/17 07:15 Amylase 54 U/L (35-125) 04/19/17 14:20 Lipase 161 U/L (23-300) 04/19/17 14:20 Urine Color Yellow (YELLOW) 04/19/17 14:20 Urine Appearance Sl cloudy (CLEAR) 04/19/17 14:20 Urine pH 6.0 (4.7-8.0) 04/19/17 14:20 Ur Specific Transfer >= 1.030 (1.005-1.035) 04/19/17 14:20 Urine Protein Trace mg/dL (<30 mg/dL) H 04/19/17 14:20 Urine Glucose (UA) Negative mg/dL (NEGATIVE) 04/19/17 14:20 Urine Ketones Trace mg/dL (NEGATIVE) H 04/19/17 14:20 Urine Blood Small (NEGATIVE) H 04/19/17 14:20 Urine Nitrate Negative (NEGATIVE) 04/19/17 14:20 Urine Bilirubin Negative (NEGATIVE) 04/19/17 14:20 Urine Urobilinogen 1.0 E.U./dL (<1 E.U./dL) H 04/19/17 14:20 Ur Leukocyte Esterase Trace Arnaud/uL (NEGATIVE) H 04/19/17 14:20 Urine RBC 2 - 5 /hpf (0-2) 04/19/17 14:20 Urine WBC 0 - 2 /hpf (0-6) 04/19/17 14:20 Ur Epithelial Cells 6 - 8 /hpf (0-5) 04/19/17 14:20 Urine Bacteria Trace (NEG) 04/19/17 14:20 IgG 860.0 mg/dL (700.0-1600.0) 04/20/17 07:30 IgA 181.9 mg/dL (70.0-400.0) 04/20/17 07:30 IgM 195.9 mg/dL (40.0-230.0) 04/20/17 07:30 STEPHEN Screen Negative (Negative) 04/20/17 07:45 Anti-Mitochondrial Ab Negative (Negative) 04/20/17 07:30 Anti-Smooth Muscle Ab Negative (Negative) 04/20/17 07:30 Hepatitis A IgM Ab Negative (NEGATIVE) 04/20/17 07:45 Hep Bs Antigen Negative (NEGATIVE) 04/20/17 07:45 Hep B Core IgM Ab Negative (NEGATIVE) 04/20/17 07:45 Hepatitis C Antibody Negative (NEGATIVE) 04/20/17 07:45 - Hospital Course Hospital Course: 51-year-old female with a past medical history of depression, anxiety disorder, unspecified, and a chronic transaminitis since 09/2016 who presented with four days of epigastric pain with radiation to the back, nausea, and not tolerating PO intake. Abdominal ultrasound showed gallstones, no dilatation or stone in the common bile duct, and increased echogenicity in the liver. HIDA scan was positive for acute cholecystitis. The patient was started on pre- operative IV antibiotics and kept NPO. She underwent a laparascopic cholecystectomy without an intraoperative cholangiogram and suffered from no major intra- or post-operative complications. She did have two episodes of vomiting post-operatively that resolved spontaneously. She tolerated a regular diet, passed a BM, had flatus, ambulated well, and had no abdominal pain after her surgery. Furthermore, viral hepatitis and autoimmune liver panel were both negative. She discharged with the below written instructions. was instructed to follow up with the below written instructions. - Date & Time of H&P Date of H&P: 04/22/17 Time of H&P: 13:44 Discharge Exam - Head Exam Head Exam: NORMAL INSPECTION - Eye Exam Eye Exam: EOMI, Normal appearance - ENT Exam ENT Exam: Mucous Membranes Moist, Normal Oropharynx - Neck Exam Neck exam: Normal Inspection - Respiratory Exam Respiratory Exam: Clear to PA & Lateral, NORMAL BREATHING PATTERN - Cardiovascular Exam Cardiovascular Exam: RRR, +S1, +S2 - GI/Abdominal Exam GI & Abdominal Exam: Normal Bowel Sounds. absent: Guarding, Rebound, Soft - Extremities Exam Extremities exam: normal capillary refill, normal inspection, pedal pulses present - Back Exam Back exam: NORMAL INSPECTION. absent: CVA tenderness (L), CVA tenderness (R) - Neurological Exam Neurological exam: Alert, CN II-XII Intact, Oriented x3 - Psychiatric Exam Psychiatric exam: Normal Affect, Normal Mood - Skin Skin Exam: Dry, Intact, Normal Color, Warm Discharge Plan - Discharge Medications Prescriptions: Ciprofloxacin [Cipro] 500 mg PO Q12 #8 tab Metronidazole [Flagyl] 500 mg PO Q8 #12 tablet oxyCODONE/Acetaminophen [Percocet 5/325 mg Tab] 1 tab PO Q4H PRN #5 tab PRN Reason: Pain, Moderate (4-7) - Follow Up Plan Condition: STABLE Disposition: HOME/ ROUTINE Instructions: Cholecystitis (DC), Cholecystitis (GEN), Low Fat Diet (DC), Laparoscopic Cholecystectomy (DC) Additional Instructions: 1) Patient is to follow-up with GI, Dr. Spencer's office next week. 2) Patient to take any prescribed medication as directed. 3) Patient to follow up with Dr. Blake's office within one week. 4) Patient encouraged to maintain low-fat diet. 5) Patient to not bath, or submerge areas of incision from surgery, until follow -up appointment with Surgeon. 6) Patient to return to ED if she develops fever, abdominal pain, or persistent vomiting. 7) Patient to follow up with primary medical doctor within one week. Referrals: PCP,NO [Primary Care Provider] - Kings Spencer MD [Staff Provider] - Akash Blake MD [Staff Provider] - <Dawson Pitts - Last Filed: 04/22/17 16:31> Provider - Provider Date of Admission: 04/19/17 20:19 Attending physician: Dawson Pitts MD Primary care physician: MICHAEL PRIMARY CARE PROVIDER Hospital Course - Lab Results Lab Results: Most Recent Lab Values WBC 7.4 10^3/ul (4.5-11.0) D 04/22/17 07:15 RBC 4.18 10^6/uL (3.5-6.1) 04/22/17 07:15 Hgb 12.0 g/dL (12.0-16.0) 04/22/17 07:15 Hct 34.0 % (36.0-48.0) L 04/22/17 07:15 MCV 81.3 fl (80.0-105.0) 04/22/17 07:15 MCH 28.7 pg (25.0-35.0) 04/22/17 07:15 MCHC 35.3 g/dl (31.0-37.0) 04/22/17 07:15 RDW 12.6 % (11.5-14.5) 04/22/17 07:15 Plt Count 176 10^3/uL (120.0-450.0) 04/22/17 07:15 MPV 9.6 fl (7.0-11.0) 04/22/17 07:15 Gran % 84.7 % (50.0-68.0) H 04/22/17 07:15 Lymph % (Auto) 7.8 % (22.0-35.0) L 04/22/17 07:15 Dale % (Auto) 7.4 % (1.0-6.0) H 04/22/17 07:15 Eos % (Auto) 0.0 % (1.5-5.0) L 04/22/17 07:15 Baso % (Auto) 0.1 % (0.0-3.0) 04/22/17 07:15 Gran # 6.28 (1.4-6.5) 04/22/17 07:15 Lymph # 0.6 (1.2-3.4) L 04/22/17 07:15 Dale # 0.6 (0.1-0.6) 04/22/17 07:15 Eos # 0.0 (0.0-0.7) 04/22/17 07:15 Baso # 0.01 K/mm3 (0.0-2.0) 04/22/17 07:15 PT 10.7 Seconds (9.9-11.8) 04/20/17 05:30 INR 0.99 (0.93-1.08) 04/20/17 05:30 APTT 33.1 Seconds (23.7-30.8) H 04/20/17 05:30 Sodium 139 mmol/L (132-148) 04/22/17 07:15 Potassium 4.9 mmol/L (3.6-5.0) 04/22/17 07:15 Chloride 104 mmol/L (98-107) 04/22/17 07:15 Carbon Dioxide 21 mmol/L (21-33) 04/22/17 07:15 Anion Gap 19 (10-20) 04/22/17 07:15 BUN 12 mg/dL (7-21) 04/22/17 07:15 Creatinine 0.7 mg/dL (0.5-1.4) 04/22/17 07:15 Est GFR ( Amer) > 60 04/22/17 07:15 Est GFR (Non-Af Amer) > 60 04/22/17 07:15 Random Glucose 124 mg/dL (70-110) H 04/22/17 07:15 Calcium 8.3 mg/dL (8.4-10.5) L 04/22/17 07:15 Iron 82 ug/dL (45-180) 04/20/17 05:45 TIBC 256 ug/dL (265-497) L 04/20/17 05:45 % Saturation 32 % (20-55) 04/20/17 05:45 Ferritin 180.0 ng/mL 04/20/17 07:30 Total Bilirubin 0.7 mg/dL (0.2-1.3) 04/22/17 07:15 AST 53 U/L (14-36) H 04/22/17 07:15 ALT 91 U/L (7-56) H 04/22/17 07:15 Alkaline Phosphatase 157 U/L (38-126) H 04/22/17 07:15 Total Protein 6.0 g/dL (5.8-8.3) 04/22/17 07:15 Albumin 3.5 g/dL (3.0-4.8) 04/22/17 07:15 Globulin 2.6 gm/dL 04/22/17 07:15 Albumin/Globulin Ratio 1.3 (1.1-1.8) 04/22/17 07:15 Amylase 54 U/L (35-125) 04/19/17 14:20 Lipase 161 U/L (23-300) 04/19/17 14:20 Urine Color Yellow (YELLOW) 04/19/17 14:20 Urine Appearance Sl cloudy (CLEAR) 04/19/17 14:20 Urine pH 6.0 (4.7-8.0) 04/19/17 14:20 Ur Specific Transfer >= 1.030 (1.005-1.035) 04/19/17 14:20 Urine Protein Trace mg/dL (<30 mg/dL) H 04/19/17 14:20 Urine Glucose (UA) Negative mg/dL (NEGATIVE) 04/19/17 14:20 Urine Ketones Trace mg/dL (NEGATIVE) H 04/19/17 14:20 Urine Blood Small (NEGATIVE) H 04/19/17 14:20 Urine Nitrate Negative (NEGATIVE) 04/19/17 14:20 Urine Bilirubin Negative (NEGATIVE) 04/19/17 14:20 Urine Urobilinogen 1.0 E.U./dL (<1 E.U./dL) H 04/19/17 14:20 Ur Leukocyte Esterase Trace Arnaud/uL (NEGATIVE) H 04/19/17 14:20 Urine RBC 2 - 5 /hpf (0-2) 04/19/17 14:20 Urine WBC 0 - 2 /hpf (0-6) 04/19/17 14:20 Ur Epithelial Cells 6 - 8 /hpf (0-5) 04/19/17 14:20 Urine Bacteria Trace (NEG) 04/19/17 14:20 IgG 860.0 mg/dL (700.0-1600.0) 04/20/17 07:30 IgA 181.9 mg/dL (70.0-400.0) 04/20/17 07:30 IgM 195.9 mg/dL (40.0-230.0) 04/20/17 07:30 STEPHEN Screen Negative (Negative) 04/20/17 07:45 Anti-Mitochondrial Ab Negative (Negative) 04/20/17 07:30 Anti-Smooth Muscle Ab Negative (Negative) 04/20/17 07:30 Hepatitis A IgM Ab Negative (NEGATIVE) 04/20/17 07:45 Hep Bs Antigen Negative (NEGATIVE) 04/20/17 07:45 Hep B Core IgM Ab Negative (NEGATIVE) 04/20/17 07:45 Hepatitis C Antibody Negative (NEGATIVE) 04/20/17 07:45 Attending/Attestation - Attestation I have personally seen and examined this patient.: Yes I have fully participated in the care of the patient.: Yes I have reviewed all pertinent clinical information, including history, physical exam and plan: Yes Notes (Text): 04/22/17 16:30 attending note; Patient seen and examined with resident. Patient is a 51-year-old female admitted with right upper quadrant pain. Ultrasound showed gallstones. HIDA is positive for acute cholecystitis. s/p lap cholecystectomy yesterday. Tolerating diet. had BM. Ambulating fine. Mildly elevated LFTs; Improving. CBD normal without stones. Liver showed increasing echogenicity. Hepatitis profile is negative. autoimmune workup is negative. Patient will follow-up with Dr. Spencer in 1 week. upon discharge the patient will follow-up with PMD Dr. Landeros. diagnosis; Acute cholecystitis Status post lap cholecystectomy Elevated LFT
[2017-04-22 17:02] VITALS: BP 109/66; PULSE 87; TEMP 99.6; O2SAT 97
[2017-04-22 18:01] LABS: LKM-1 Ab (IgG) <=20.0 U (<=20.0)
--- NOTE | 2017-04-23 23:22 | OP ---
OPERATIVE DATE: 04/21/2017 PREOPERATIVE DIAGNOSIS: Acute on chronic cholecystitis and lithiasis. POSTOPERATIVE DIAGNOSIS: Acute on chronic cholecystitis and lithiasis. OPERATION PERFORMED: Laparoscopic cholecystectomy without cholangiogram. DESCRIPTION OF PROCEDURE: In the operating room, the patient was identified by name, name of the procedure, laterality, my sharyn, her name, number, wrist band, and date. In the operating room, the patient was identified. A supraumbilical incision was made through the skin and subcutaneous tissues. A Veress first needle was inserted. This was done after the abdomen was prepped and draped. Veress needle was inserted followed by the Visiport. Visiport went in without any issue, and we explored,found nothing else except for a cholecystitis. A xiphoid 5 and 2 lateral 5s were placed. The gallbladder was pulled up by the fundus and the infundibulum, the peritoneum was pulled down very nicely, and quickly the cystic duct and artery were found. There was little inflammation. They were cleaned cleanly and nicely. The cystic duct was doubly clipped and divided after the view of safety was achieved followed by the cystic artery was doubly clipped and divided. The gallbladder was then taken off the liver bed using a Harmonic scalpel and the cautery. It was placed in a bag once removed came through very nicely with ablation of the umbilicus. The wound was copiously irrigated, dried. There was nothing untoward. No bleeding, no bile, nothing else was seen, nothing was suspicious. The CO2 was removed under direct vision. The trocars were removed. The incisions were with a stitch of 2-0 Vicryl at the umbilicus and the wounds were injected with Marcaine, closed with Vicryl, PDS and Dermabond. The patient was taken to recovery room in good condition after sponge and needle counts was quite correct. Akahs Blake MD
== END 2017-04-22 18:35 | disposition home or self-care (01) | DRG 494 ==
LOC: ED 13:35 → ERH 18:45 → UNDOADMOB 18:45 → ERH 20:19 → 5RNO 23:07
PROVIDERS: ADMIT Hospitalist; ATTEND Internal Medicine
PROC: 0FT44ZZ Resection of Gallbladder, Percutaneous Endoscopic Approach (ICD-10-PCS; principal; 2017-04-21 14:00)
DX: K80.00 Calculus of gallbladder with acute cholecystitis without obstruction (principal); F32.9 Major depressive disorder, single episode, unspecified; F41.9 Anxiety disorder, unspecified; G47.00 Insomnia, unspecified